=== PATIENT | female | born 1995 | race Caucasian/White ===

== ENCOUNTER 2017-07-01 02:25 | Emergency (ER) | payer SELFPAY ==
[2017-07-01] MEDS ORDERED: THIAMINE 200 MG/2 ML IV ONE (02:36)
[2017-07-01] MEDS ORDERED: Sodium Chloride 0.9% 1000 ML 1,000 ML IV STA ×2 (02:36→03:43)
[2017-07-01] MEDS ORDERED: Sodium Chloride 0.9% 1000 ML 1,000 ML ONE ×2 (02:40→03:44)
[2017-07-01] MEDS ORDERED: THIAMINE 200 MG/2 ML ONE (02:40)
--- NOTE | 2017-07-01 02:43 | ERPHSYRPT ---
- History of Present Illness Time Seen by Provider: 07/01/17 02:37 Source: patient Exam Limitations: no limitations Physician History: This is a 21-year-old white female brought by medics after patient was found outside laying in the yard patient is somewhat decreased level of consciousness however answering questions well patient was given Narcan by the medics as well as Zofran. Upon arrival patient is alert oriented 3 she denies falling she does state that she's been drinking alcohol on [place] mild she denies any illicit drug use at this time. Past medical history includes Graves' disease she states that she's had her thyroid removed she has a heart murmur and a history of nonepileptic seizures. Timing/Duration: today (just prior to arrival) Severity: moderate Modifying Factors: Improves With: other (alcohol use) Associated Symptoms: other (decreased level of consciousness earlier.), No nausea, No vomiting, No abdominal pain, No shortness of breath, No heartburn, No diaphoresis, No cough, No chills, No chest pain, No fever, No headaches, No loss of appetite, No malaise, No rash, No syncope, No seizure, No weakness Allergies/Adverse Reactions: No Known Drug Allergies Allergy (Unverified 07/01/17 02:37) Home Medications: No Reportable Medications [No Reported Medications] 07/01/17 [History] - Review of Systems Constitutional: No Fever, No Chills Eyes: No Symptoms, No Eye Pain, No Eye Redness, No Itchy, No Photophobia, No Tearing, No Vision Changes, No Double Vision, No Foreign Body Sensation Ears, Nose, & Throat: No Symptoms, No Ear Pain, No Ear Discharge, No Hearing Changes, No Tinnitus, No Nose Pain, No Nose Congestion, No Nose Discharge, No Sinus Drainage, No Epistaxis, No Mouth Pain, No Mouth Swelling, No Loose Teeth, No Throat Pain, No Throat Swelling, No Hoarse, No Painful Swallowing, No Snoring , No Stridor Respiratory: No Cough, No Dyspnea Cardiac: No Chest Pain, No Edema, No Syncope Abdominal/Gastrointestinal: No Nausea, No Vomiting, No Diarrhea, No Constipation , No Hematemesis, No Hematochezia, No Melena, No Dysphagia, No Appetite Changes Genitourinary Symptoms: No Dysuria Musculoskeletal: Other (low back pain) Skin: No Rash Neurological: Other (decreased level of consciousness earlier), No Dizziness, No Focal Weakness, No Sensory Changes Psychological: Other (patient states she's been drinking an unknown amount of alcohol) Endocrine: No Symptoms All Other Systems: Reviewed and Negative - Past Medical History Other Medical History: Graves diseate , non epileptic seizures, heart murmer thyroid iradiation - Past Surgical History Past Surgical History: No Significant Family History: no pertinent family hx - Nursing Vital Signs Nursing Vital Signs: Initial Vital Signs Temperature 98.5 F 07/01/17 02:47 Pulse Rate 89 07/01/17 02:47 Respiratory Rate 18 07/01/17 02:47 Blood Pressure 120/60 07/01/17 02:47 O2 Sat by Pulse Oximetry 98 07/01/17 02:47 Pain Scale Pain Intensity 4 - Physical Exam General Appearance: no apparent distress, alert, other (well-developed well- nourished white female, alert, oriented 3 talks in a soft voice) Eye Exam: PERRL/EOMI, eyes nml inspection Ears, Nose, Throat Exam: normal ENT inspection, TMs normal, pharynx normal, moist mucous membranes Neck Exam: normal inspection, non-tender, supple, full range of motion Respiratory Exam: normal breath sounds, lungs clear, No respiratory distress Cardiovascular Exam: regular rate/rhythm, normal heart sounds, normal peripheral pulses Gastrointestinal/Abdomen Exam: soft, normal bowel sounds, No tenderness, No mass Back Exam: normal inspection, normal range of motion, No CVA tenderness, No vertebral tenderness Extremity Exam: normal inspection, normal range of motion, pelvis stable Neurologic Exam: alert, oriented x 3, cooperative, 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 as tested, normal mood/affect, nml cerebellar function, nml station & gait, sensation nml, other (Patient alert, oriented 3, cranial nerves II through XII intact, speech normal, 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 equal and symmetrical 5/5 finger to nose within normal limits, sensation intact to all extremities), No motor deficits Skin Exam: normal color, warm, dry, No rash Lymphatic Exam: No adenopathy SpO2 Interpretation: normal (98%), borderline oxygenation Oxygen Delivery: Room Air - Course Nursing assessment & vital signs reviewed: Yes EKG Interpreted by Me: RATE (85 bpm), Sinus Rhythm, NORMAL AXIS, 1st degree AV Block, Other (EKG, sinus rhythm with first-degree AV 85 bpm normal axis no acute ST or T wave changes noted) Ordered Tests: Active Orders 24 hr Category Date Time Status Accucheck STAT Care 07/01/17 02:36 Active Industrial Machine Assembler STAT Care 07/01/17 02:37 Active EKG-ER Only STAT Care 07/01/17 02:36 Active IV Insertion STAT Care 07/01/17 02:36 Active Orthostatic Vital Signs STAT Care 07/01/17 03:41 Active ACETAMINOPHEN Stat Lab 07/01/17 02:55 Completed AMYLASE Stat Lab 07/01/17 02:55 Completed CBC W DIFF Stat Lab 07/01/17 02:55 Completed CMP Stat Lab 07/01/17 02:55 Completed ETHYL ALCOHOL Stat Lab 07/01/17 02:55 Completed HCG QUALITATIVE,SERUM Stat Lab 07/01/17 02:55 Completed LIPASE Stat Lab 07/01/17 02:55 Completed SALICYLATE Stat Lab 07/01/17 02:55 Completed UA W/RFX UR CULTURE Stat Lab 07/01/17 02:55 Completed Urine Triage Profile Stat Lab 07/01/17 02:55 Completed Medication Summary Generic Name Dose Route Start Last Admin Trade Name Freq PRN Reason Stop Dose Admin Sodium Chloride 1,000 mls @ 999 mls/hr 07/01/17 03:43 Sodium Chloride 0.9% 1000 Ml IV 07/01/17 04:43 .Q1H1M STA Discontinued Medications Generic Name Dose Route Start Last Admin Trade Name Freq PRN Reason Stop Dose Admin Sodium Chloride 1,000 mls @ 999 mls/hr 07/01/17 02:36 07/01/17 02:42 Sodium Chloride 0.9% 1000 Ml IV 07/01/17 03:36 999 mls/hr .Q1H1M STA Administration Sodium Chloride Confirm 07/01/17 02:40 Sodium Chloride 0.9% 1000 Ml Administered 07/01/17 02:41 Dose 1,000 mls @ ud .ROUTE .STK-MED ONE Thiamine HCl 100 mg 07/01/17 02:36 07/01/17 02:42 Thiamine 200 Mg/2 Ml IV 07/01/17 02:37 100 mg STAT ONE Administration Thiamine HCl Confirm 07/01/17 02:40 Thiamine 200 Mg/2 Ml Administered 07/01/17 02:41 Dose 200 mg .ROUTE .STK-MED ONE Lab/Rad Data: Laboratory Result Diagrams 07/01/17 02:55 07/01/17 02:55 Laboratory Results 07/01/17 07/01/17 07/01/17 Range/Units 02:55 02:55 02:55 WBC (4.0-10.5) K/mm3 RBC (4.1-5.4) M/mm3 Hgb (12.0-16.0) gm/dl Hct (35-47) % MCV (78-100) fl MCH (26-32) pg MCHC (32-36) g/dl RDW (11.5-14.0) % Plt Count (150-450) K/mm3 MPV (6-9.5) fl Gran % (36.0-66.0) % Lymphocytes % (24.0-44.0) % Monocytes % (0.0-12.0) % Eosinophils % (0.00-5.0) % Basophils % (0.0-0.4) % Basophils # (0-0.4) Sodium 143 (136-145) mEq/L Potassium 3.5 (3.5-5.1) mEq/L Chloride 108 H (98-107) mEq/L Carbon Dioxide 23.0 (21-32) mEq/L Anion Gap 15.0 (5-15) MEQ/L BUN 14 (9-20) mg/dL Creatinine 1.06 (0.55-1.30) mg/dl Estimated GFR > 60 ML/MIN Glucose 77 (70-110) MG/DL Calcium 8.5 (8.5-10.1) mg/dL Total Bilirubin 0.40 (0.2-1.0) mg/dL AST 34 (15-37) U/L ALT 26 (12-78) U/L Alkaline Phosphatase 35 L (46-116) U/L Serum Total Protein 7.0 (6.4-8.2) gm/dL Albumin 4.2 (3.4-5.0) g/dL Amylase 36 (25-115) U/L Lipase 157 (73-393) U/L Serum , Qual NEGATIVE (Negative) Ur Collection Type Urine Color (YELLOW) Urine Appearance (CLEAR) Urine pH (5-6) Ur Specific [place] (1.005-1.025) Urine Protein (Negative) Urine Ketones (NEGATIVE) Urine Blood (0-5) [place]/ul Urine Nitrite (NEGATIVE) Urine Bilirubin (NEGATIVE) Urine Urobilinogen (0-1) mg/dL Ur Leukocyte Esterase (NEGATIVE) Urine Glucose (NEGATIVE) mg/dL Salicylates < 2.8 L (2.8-20.0) mg/dl Urine Opiates Level (NEGATIVE) Ur Methadone (NEGATIVE) Acetaminophen < 2.0 L (10-30) ug/ml Urine Barbiturates (NEGATIVE) Ur Phencyclidine (PCP) (NEGATIVE) Urine Amphetamine (NEGATIVE) U Benzodiazepine Level (NEGATIVE) Urine Cocaine (NEGATIVE) Urine Marijuana (THC) (NEGATIVE) Ethyl Alcohol 0.055 H (0.00-0.01) % Specimen Received 07/01/17 07/01/17 07/01/17 Range/Units 02:55 02:55 02:55 WBC 6.1 (4.0-10.5) K/mm3 RBC 3.26 L (4.1-5.4) M/mm3 Hgb 10.1 L (12.0-16.0) gm/dl Hct 30.8 L (35-47) % MCV 94.5 (78-100) fl MCH 30.9 (26-32) pg MCHC 32.8 (32-36) g/dl RDW 13.6 (11.5-14.0) % Plt Count 202 (150-450) K/mm3 MPV 9.4 (6-9.5) fl Gran % 47.9 (36.0-66.0) % Lymphocytes % 37.1 (24.0-44.0) % Monocytes % 8.8 (0.0-12.0) % Eosinophils % 5.9 H (0.00-5.0) % Basophils % 0.3 (0.0-0.4) % Basophils # 0.02 (0-0.4) Sodium (136-145) mEq/L Potassium (3.5-5.1) mEq/L Chloride (98-107) mEq/L Carbon Dioxide (21-32) mEq/L Anion Gap (5-15) MEQ/L BUN (9-20) mg/dL Creatinine (0.55-1.30) mg/dl Estimated GFR ML/MIN Glucose (70-110) MG/DL Calcium (8.5-10.1) mg/dL Total Bilirubin (0.2-1.0) mg/dL AST (15-37) U/L ALT (12-78) U/L Alkaline Phosphatase (46-116) U/L Serum Total Protein (6.4-8.2) gm/dL Albumin (3.4-5.0) g/dL Amylase (25-115) U/L Lipase (73-393) U/L Serum , Qual (Negative) Ur Collection Type CLEAN CATCH Urine Color YELLOW (YELLOW) Urine Appearance CLEAR (CLEAR) Urine pH 5.0 (5-6) Ur Specific [place] 1.020 (1.005-1.025) Urine Protein NEGATIVE (Negative) Urine Ketones NEGATIVE (NEGATIVE) Urine Blood NEGATIVE (0-5) [place]/ul Urine Nitrite NEGATIVE (NEGATIVE) Urine Bilirubin NEGATIVE (NEGATIVE) Urine Urobilinogen NORMAL (0-1) mg/dL Ur Leukocyte Esterase NEGATIVE (NEGATIVE) Urine Glucose NEGATIVE (NEGATIVE) mg/dL Salicylates (2.8-20.0) mg/dl Urine Opiates Level NEG. (NEGATIVE) Ur Methadone NEG. (NEGATIVE) Acetaminophen (10-30) ug/ml Urine Barbiturates NEG. (NEGATIVE) Ur Phencyclidine (PCP) NEG. (NEGATIVE) Urine Amphetamine NEG. (NEGATIVE) U Benzodiazepine Level NEG. (NEGATIVE) Urine Cocaine NEG. (NEGATIVE) Urine Marijuana (THC) NEG. (NEGATIVE) Ethyl Alcohol (0.00-0.01) % Specimen Received 07/01/17 0255 - Progress Progress: improved Progress Note: 07/01/17 03:36 21-year-old white female brought by medics with complaint that the patient was decreased level of consciousness and laying out in the yard. Patient initially noted to be somewhat somnolent by medics she was given Narcan and Zofran. Patient's labs are essentially normal patient initially mildly somnolent but arouses easily was alert oriented 3. Patient now is alert and oriented after having received thiamine 100 mg normal saline 1000 mL IV. She is in no acute distress she has been able to ambulate to the bathroom. Patient with a blood alcohol level 0.055. Patient does have a history of nonepileptic seizures. patient does state that she was in an argument and went outside to smoke before patient with decreased level of consciousness. Will plan to discharge patient. Will have patient no further drinking she is to stay with family or friends. No driving. Take showers instead of baths Will obtain orthostatic vital signs before patient leaves. 07/01/17 03:45 Patient with mild orthostatic hypotension. Will give a second liter of normal saline prior to discharge. - Departure Time of Disposition: 03:39 Departure Disposition: Home Clinical Impression: Decreased level of consciousness, Alcohol use, history of nonepileptic seizures Condition: Fair Critical Care Time: No Referrals: RUSSEL GARIBAY [Primary Care Provider] - Additional Instructions: Return home. No more alcohol consumption today. Rest, plenty of fluids. No driving. No heights. No hazardous activity. Take showers instead of baths. Do not engage in any activity which may harm you or other people. Follow-up with your family doctor (list) Return for acute distress or for severe symptoms
[2017-07-01 03:08] LABS: BASOPHIL % 0.3 % (0.0-0.4); Eosinophil % 5.9 % (0.00-5.0); Granulocytes % 47.9 % (36.0-66.0); Lymphocytes % 37.1 % (24.0-44.0); Mean Cell Volume 94.5 fl (78-100); Mean Platelet Volume 9.4 fl (6-9.5); Monocytes % 8.8 % (0.0-12.0); Platelet Count 202 K/mm3 (150-450); Red Blood Count 3.26 M/mm3 (4.1-5.4); Red Cell Distribution Width 13.6 % (11.5-14.0); White Blood Count 6.1 K/mm3 (4.0-10.5)
[2017-07-01 03:11] LABS: ADD URINE CULTURE? NO (NO); Bilirubin NEGATIVE (NEGATIVE); Blood NEGATIVE Ery/ul (0-5); COMPLETE URINE MICROSCOPIC? NO; Collection Type CLEAN CATCH; Glucose NEGATIVE (NEGATIVE); Leukocyte Esterase NEGATIVE (NEGATIVE); Mean Corpuscular Hemoglobin 30.9 pg (26-32)
[2017-07-01 03:27] LABS: ETHYL ALCOHOL 0.055 % (0.00-0.01); LIPASE 157 U/L (73-393)
[2017-07-01 03:30] LABS: ACETAMINOPHEN < 2.0 ug/ml (10-30)
[2017-07-01 03:31] LABS: ALBUMIN 4.2 g/dL (3.4-5.0); ALKALINE PHOSPHATASE 35 U/L (46-116); BLOOD UREA NITROGEN 14 mg/dL (9-20); CHLORIDE 108 mEq/L (98-107); Glucose 77 MG/DL (70-110); Potassium 3.5 mEq/L (3.5-5.1); SGOT/AST 34 U/L (15-37); SGPT/ALT 26 U/L (12-78); SODIUM 143 mEq/L (136-145)
[2017-07-01 04:30] VITALS: BP 96/56; PULSE 82; O2SAT 99
== END 2017-07-01 04:40 | disposition home or self-care (01) ==
LOC: ED 02:25
DX: R40.4 Transient alteration of awareness (principal); Z72.89 Other problems related to lifestyle; Z87.898 Personal history of other specified conditions
CPT/HCPCS: 36000; 36415; 80053; 80307; 81002; 82150; 82962; 83690; 84703; 85025; 93005; 93041; 96360; 96361; 96374; 99284; G0481

== ENCOUNTER 2017-09-24 00:48 | Emergency (ER) | payer OTHER ==
[2017-09-24] MEDS ORDERED: TORAdol 30 mg Injection IV ONE (01:11)
--- NOTE | 2017-09-24 01:17 | ERPHSYRPT ---
- History of Present Illness Time Seen by Provider: 09/24/17 01:00 Historian: patient Exam Limitations: no limitations Patient Subjective Stated Complaint: Pt C/O chest discomfort with palpation and deep breathing x 3-4 days relieved with excedrin at home. Sts excedrin is now not working to relieve discomfort. Reports no cough. Had vomiting a few days ago with chills and sweats. Also reports intermittent hives on extremities. Triage Nursing Assessment: Pt alert, oriented, answers all questions appropriately. Skin pink, warm, dry. Resps non-labored. Pt ambulatory to tx room, steady gait noted. Physician History: Pt has been c/o lower, retrosternal chest pain for few days, not radiating, increasing upon deep inspiration. Pt is smoker, denies any medical problems, no productive cough, fever, severe shortness of breath, nausea, vomiting or other complaints. Timing/Duration: day(s) (4) Activities at Onset: none Quality: stabbing Location: substernal Chest Pain Radiation: no radiation Severity of Pain-Max: severe Severity of Pain-Current: mild Modifying Factors: Improves With: nothing Associated Symptoms: shortness of breath Prior Chest Pain/Cardiac Workup: no prior chest pain Nitro Today/Relief: no nitro taken today Aspirin Treatment Today: no aspirin today Allergies/Adverse Reactions: No Known Drug Allergies Allergy (Verified 09/24/17 00:58) Home Medications: No Reportable Medications [No Reported Medications] 07/01/17 [History] Hx Pneumococcal Vaccination/Date Given: No (unknown) - Review of Systems Constitutional: No Symptoms Respiratory: Cough, Dyspnea on Exertion (CONCEPCION) Cardiac: Chest Pain, No Edema Skin: Pruritis, Other (hives on both forearms) All Other Systems: Reviewed and Negative - Past Medical History Pertinent Past Medical History: Yes Neurological History: Seizures Cardiac History: Other Endocrine Medical History: Other Other Medical History: Graves diseate , non epileptic seizures, heart murmer thyroid iradiation - Past Surgical History Past Surgical History: No Cardiac: Other Other Surgical History: states heart murmur surgery, - Social History Smoking Status: Current every day smoker How long have you smoked: 11 Exposure to second hand smoke: No Drug Use: none Patient Lives Alone: No Significant Family History: no pertinent family hx - Female History Hx Last Menstrual Period: 09/07/17 Hx Now: No - Nursing Vital Signs Nursing Vital Signs: Initial Vital Signs Temperature 97.4 F 09/24/17 00:59 Pulse Rate 70 09/24/17 00:59 Respiratory Rate 16 09/24/17 00:59 Blood Pressure 110/69 09/24/17 00:59 O2 Sat by Pulse Oximetry 99 09/24/17 00:59 Pain Scale Pain Intensity 0 - Physical Exam General Appearance: no apparent distress Eye Exam: PERRL/EOMI Ears, Nose, Throat Exam: normal ENT inspection Neck Exam: normal inspection, non-tender, supple, No JVD Respiratory Exam: normal breath sounds, lungs clear, airway intact, No chest tenderness, No respiratory distress Cardiovascular Exam: regular rate/rhythm, normal heart sounds, normal peripheral pulses Gastrointestinal/Abdomen Exam: soft, normal bowel sounds, tenderness (mild, RUQ) , No distention, No mass, No rebound Back Exam: normal inspection, rash, other (hives), No CVA tenderness Extremity Exam: normal inspection, normal range of motion, madeline's sign ( negative), No contusions, No calf tenderness Neurologic Exam: alert, oriented x 3, cooperative, normal mood/affect Skin Exam: warm, dry, rash (hives on both cubital areas), jaundice (mild) Lymphatic Exam: No adenopathy SpO2: 99 Oxygen Delivery: Room Air - Course EKG Interpreted by Me: Sinus [place], NORMAL AXIS, NORMAL INTERVALS, Non-specific ST Changes - CT Exams Abdomen/Pelvis CT Interpretation: Other (Cholelithiasis, enlargement of CBD (1.4 cm), suspected calculus near the sphincter of Oddi) Ordered Tests: Active Orders 24 hr Category Date Time Status Machine Feller STAT Care 09/24/17 01:09 Active EKG-ER Only STAT Care 09/24/17 01:08 Active IV Insertion STAT Care 09/24/17 01:08 Active ABDOMEN AND PELVIS W CONTRAST [CT] Stat Exams 09/24/17 02:30 Taken CHEST 2 VIEWS (PA AND LAT) Stat Exams 09/24/17 01:08 Taken CHEST WITH CONTRAST [CT] Stat Exams 09/24/17 02:30 Taken CBC W DIFF Stat Lab 09/24/17 01:30 Completed CMP Stat Lab 09/24/17 01:30 Completed D-DIMER QUANTITATION Stat Lab 09/24/17 01:30 Completed HCG,QUALITATIVE URINE Stat Lab 09/24/17 04:30 Completed LIPASE Stat Lab 09/24/17 01:00 Completed MAGNESIUM Stat Lab 09/24/17 01:30 Completed NT PRO BNP Stat Lab 09/24/17 01:30 Completed TROPONIN Q3H Lab 09/24/17 01:30 Completed TROPONIN Q3H Lab 09/24/17 04:35 Completed TROPONIN Q3H Lab 09/24/17 07:15 Ordered TROPONIN Q3H Lab 09/24/17 10:15 Ordered TROPONIN Q3H Lab 09/24/17 13:15 Ordered Urine Triage Profile Stat Lab 09/24/17 04:30 Completed Medication Summary Generic Name Dose Route Start Last Admin Trade Name Freq PRN Reason Stop Dose Admin Sodium Chloride 1,000 mls @ 999 mls/hr 09/24/17 04:32 09/24/17 04:41 Sodium Chloride 0.9% 1000 Ml IV 09/24/17 05:32 999 mls/hr .Q1H1M STA Administration Discontinued Medications Generic Name Dose Route Start Last Admin Trade Name Freq PRN Reason Stop Dose Admin Diphenhydramine HCl 25 mg 09/24/17 01:38 09/24/17 01:56 Benadryl 50 Mg/Ml IV 09/24/17 01:39 25 mg STAT ONE Administration Diphenhydramine HCl Confirm 09/24/17 01:55 Benadryl 50 Mg/Ml Administered 09/24/17 01:56 Dose 50 mg .ROUTE .STK-MED ONE Sodium Chloride Confirm 09/24/17 04:39 Sodium Chloride 0.9% 1000 Ml Administered 09/24/17 04:40 Dose 1,000 mls @ ud .ROUTE .STK-MED ONE Ketorolac Tromethamine 30 mg 09/24/17 01:11 09/24/17 01:51 Toradol 30 Mg Injection IV 09/24/17 01:12 30 mg STAT ONE Administration Ketorolac Tromethamine Confirm 09/24/17 01:35 Toradol 30 Mg Injection Administered 09/24/17 01:36 Dose 30 mg .ROUTE .STK-MED ONE Lab/Rad Data: Laboratory Result Diagrams 09/24/17 01:30 09/24/17 01:30 Laboratory Results 09/24/17 09/24/17 09/24/17 Range/Units 04:35 04:30 04:30 WBC (4.0-10.5) K/mm3 RBC (4.1-5.4) M/mm3 Hgb (12.0-16.0) gm/dl Hct (35-47) % MCV (78-100) fl MCH (26-32) pg MCHC (32-36) g/dl RDW (11.5-14.0) % Plt Count (150-450) K/mm3 MPV (6-9.5) fl Gran % (36.0-66.0) % Lymphocytes % (24.0-44.0) % Monocytes % (0.0-12.0) % Eosinophils % (0.00-5.0) % Basophils % (0.0-0.4) % Basophils # (0-0.4) D-Dimer (0-500) ng/mL Sodium (136-145) mEq/L Potassium (3.5-5.1) mEq/L Chloride (98-107) mEq/L Carbon Dioxide (21-32) mEq/L Anion Gap (5-15) MEQ/L BUN (9-20) mg/dL Creatinine (0.55-1.30) mg/dl Estimated GFR ML/MIN Glucose (70-110) MG/DL Calcium (8.5-10.1) mg/dL Magnesium (1.8-2.4) mg/dL Total Bilirubin (0.2-1.0) mg/dL AST (15-37) U/L ALT (12-78) U/L Alkaline Phosphatase (46-116) U/L Troponin I < 0.017 (0.000-0.056) ng/ml NT-Pro-B Natriuret Pep (0-125) pg/ml Serum Total Protein (6.4-8.2) gm/dL Albumin (3.4-5.0) g/dL Lipase (73-393) U/L Urine HCG, Qual NEGATIVE (Negative) Urine Opiates Level NEG. (NEGATIVE) Ur Methadone NEG. (NEGATIVE) Urine Barbiturates NEG. (NEGATIVE) Ur Phencyclidine (PCP) NEG. (NEGATIVE) Urine Amphetamine NEG. (NEGATIVE) U Benzodiazepine Level NEG. (NEGATIVE) Urine Cocaine NEG. (NEGATIVE) Urine Marijuana (THC) POS. (NEGATIVE) 09/24/17 09/24/17 09/24/17 Range/Units 01:30 01:30 01:30 WBC (4.0-10.5) K/mm3 RBC (4.1-5.4) M/mm3 Hgb (12.0-16.0) gm/dl Hct (35-47) % MCV (78-100) fl MCH (26-32) pg MCHC (32-36) g/dl RDW (11.5-14.0) % Plt Count (150-450) K/mm3 MPV (6-9.5) fl Gran % (36.0-66.0) % Lymphocytes % (24.0-44.0) % Monocytes % (0.0-12.0) % Eosinophils % (0.00-5.0) % Basophils % (0.0-0.4) % Basophils # (0-0.4) D-Dimer 1175.86 H* (0-500) ng/mL Sodium 136 (136-145) mEq/L Potassium 3.8 (3.5-5.1) mEq/L Chloride 102 (98-107) mEq/L Carbon Dioxide 26.6 (21-32) mEq/L Anion Gap 11.3 (5-15) MEQ/L BUN 15 (9-20) mg/dL Creatinine 1.38 H (0.55-1.30) mg/dl Estimated GFR 52 ML/MIN Glucose 88 (70-110) MG/DL Calcium 9.3 (8.5-10.1) mg/dL Magnesium 2.0 (1.8-2.4) mg/dL Total Bilirubin 2.40 H (0.2-1.0) mg/dL AST 686 H (15-37) U/L ALT 895 H (12-78) U/L Alkaline Phosphatase 230 H (46-116) U/L Troponin I < 0.017 (0.000-0.056) ng/ml NT-Pro-B Natriuret Pep 81 (0-125) pg/ml Serum Total Protein 7.6 (6.4-8.2) gm/dL Albumin 4.2 (3.4-5.0) g/dL Lipase (73-393) U/L Urine HCG, Qual (Negative) Urine Opiates Level (NEGATIVE) Ur Methadone (NEGATIVE) Urine Barbiturates (NEGATIVE) Ur Phencyclidine (PCP) (NEGATIVE) Urine Amphetamine (NEGATIVE) U Benzodiazepine Level (NEGATIVE) Urine Cocaine (NEGATIVE) Urine Marijuana (THC) (NEGATIVE) 09/24/17 09/24/17 Range/Units 01:30 01:00 WBC 5.2 (4.0-10.5) K/mm3 RBC 3.67 L (4.1-5.4) M/mm3 Hgb 11.3 L (12.0-16.0) gm/dl Hct 34.8 L (35-47) % MCV 94.8 (78-100) fl MCH 30.7 (26-32) pg MCHC 32.5 (32-36) g/dl RDW 13.7 (11.5-14.0) % Plt Count 189 (150-450) K/mm3 MPV 9.8 H (6-9.5) fl Gran % 44.5 (36.0-66.0) % Lymphocytes % 40.7 (24.0-44.0) % Monocytes % 7.5 (0.0-12.0) % Eosinophils % 6.7 H (0.00-5.0) % Basophils % 0.6 (0.0-0.4) % Basophils # 0.03 (0-0.4) D-Dimer (0-500) ng/mL Sodium (136-145) mEq/L Potassium (3.5-5.1) mEq/L Chloride (98-107) mEq/L Carbon Dioxide (21-32) mEq/L Anion Gap (5-15) MEQ/L BUN (9-20) mg/dL Creatinine (0.55-1.30) mg/dl Estimated GFR ML/MIN Glucose (70-110) MG/DL Calcium (8.5-10.1) mg/dL Magnesium (1.8-2.4) mg/dL Total Bilirubin (0.2-1.0) mg/dL AST (15-37) U/L ALT (12-78) U/L Alkaline Phosphatase (46-116) U/L Troponin I (0.000-0.056) ng/ml NT-Pro-B Natriuret Pep (0-125) pg/ml Serum Total Protein (6.4-8.2) gm/dL Albumin (3.4-5.0) g/dL Lipase 278 (73-393) U/L Urine HCG, Qual (Negative) Urine Opiates Level (NEGATIVE) Ur Methadone (NEGATIVE) Urine Barbiturates (NEGATIVE) Ur Phencyclidine (PCP) (NEGATIVE) Urine Amphetamine (NEGATIVE) U Benzodiazepine Level (NEGATIVE) Urine Cocaine (NEGATIVE) Urine Marijuana (THC) (NEGATIVE) - Progress Progress: improved Air Movement: good Progress Note: 09/24/17 04:17 Pt has been afebrile, improved after Toradol and Zofran, denies severe pain. I discussed the results with her and the need to be transferred to another Hospital for MRCP, and possible Endoscopic procedure. 09/24/17 05:[address] Trevino at [facility], discussed our findings and patient's current condition, he agreed to transfer her to their ER for further care, informed patient, and she agreed to be transferred, she understood all risks and benefits involved. - Departure Time of Disposition: 05:05 Departure Disposition: Transfer Clinical Impression: Jaundice, Biliary calculi, common bile duct Condition: Stable Critical Care Time: No Referrals: DOCTOR,NO FAMILY [Primary Care Provider] -
[2017-09-24 01:34] LABS: BASOPHIL % 0.6 % (0.0-0.4); Eosinophil % 6.7 % (0.00-5.0); Granulocytes % 44.5 % (36.0-66.0); Lymphocytes % 40.7 % (24.0-44.0); Mean Cell Volume 94.8 fl (78-100); Mean Platelet Volume 9.8 fl (6-9.5); Monocytes % 7.5 % (0.0-12.0); Platelet Count 189 K/mm3 (150-450); Red Blood Count 3.67 M/mm3 (4.1-5.4); Red Cell Distribution Width 13.7 % (11.5-14.0); White Blood Count 5.2 K/mm3 (4.0-10.5)
[2017-09-24] MEDS ORDERED: TORAdol 30 mg Injection ONE (01:35)
[2017-09-24] MEDS ORDERED: BENADRYL 50 MG/ML IV ONE (01:38)
[2017-09-24 01:54] LABS: Mean Corpuscular Hemoglobin 30.7 pg (26-32)
[2017-09-24] MEDS ORDERED: BENADRYL 50 MG/ML ONE (01:55)
[2017-09-24 02:06] LABS: ALBUMIN 4.2 g/dL (3.4-5.0); ANION GAP 11.3 MEQ/L (5-15); BILIRUBIN,TOTAL 2.4 mg/dL (0.2-1.0); Carbon Dioxide 26.6 mEq/L (21-32); Potassium 3.8 mEq/L (3.5-5.1); Total Protein 7.6 gm/dL (6.4-8.2)
[2017-09-24] MEDS ORDERED: Sodium Chloride 0.9% 1000 ML 1,000 ML IV STA (04:32)
[2017-09-24] MEDS ORDERED: Sodium Chloride 0.9% 1000 ML 1,000 ML ONE (04:39)
[2017-09-24 05:06] VITALS: O2SAT 99
[2017-09-24 06:01] VITALS: BP 99/54; PULSE 69
--- NOTE | 2017-09-24 16:29 | XRAY ---
Indication: Chest pain. Elevated d-dimer. Multiple contiguous axial images obtained through the chest using 80 cc Isovue 370 contrast and PE protocol. Comparison: None There is satisfactory opacification of the pulmonary arteries to include lobar and segmental branches. No filling defect or pulmonary embolus. Heart is not enlarged. Aorta is normal in course and caliber. No pathologic mediastinal/hilar lymphadenopathy. Small hiatal hernia. Examination of the lung parenchyma demonstrates mild bilateral dependent atelectasis and tiny bilateral effusions. Right middle lobe subsegmental atelectasis/scarring. Bony thorax intact with partially united old right clavicle shaft fracture. CT abdomen reported separately. Impression: 1. Negative pulmonary embolus. 2. Tiny bilateral pleural effusions and bilateral dependent atelectasis. 3. Small hiatal hernia. Comment: Preliminary interpretation was made by C. No discrepancy. CTDI 12.07
--- NOTE | 2017-09-24 16:33 | XRAY ---
Indication: Right abdominal pain. Elevated liver enzymes. Multiple contiguous axial images obtained through the abdomen and pelvis using 80 cc Isovue 370 contrast only. Comparison: None CT chest reported separately. Noncontrasted stomach and bowel loops appear nonobstructed. There is small cul-de-sac fluid presumed from ruptured/leaking cyst. Gallbladder is moderately distended with numerous tiny intraluminal gallstones. Common bile duct distended up to 14 mm. Remaining liver, pancreas, spleen, adrenal glands, kidneys, ureters, bladder, uterus, and aorta appear unremarkable. No pathologic retroperitoneal lymphadenopathy. Bony thorax intact with partially united old right clavicle shaft fracture osseous structures intact CT abdomen reported separately. Impression: 1. Distended gallbladder with numerous gallstones and common bile duct prominence. Gallbladder sonogram may yield further information. 2. Small cul-de-sac fluid presumed from ruptured/leaking cyst. Comment: Preliminary interpretation was made by C. No discrepancy. CTDI 12.07
--- NOTE | 2017-09-24 16:36 | XRAY ---
Indication: Chest pain. Comparison: October 11, 2009. PA/lateral chest again demonstrates normal heart, lungs, and bony thorax with interval atrial septal defect surgery.
== END 2017-09-24 06:15 | disposition short-term general hospital (02) ==
LOC: ED 00:48
DX: R17 Unspecified jaundice (principal); K80.80 Other cholelithiasis without obstruction; K80.50 Calculus of bile duct without cholangitis or cholecystitis without obstruction; R07.89 Other chest pain; E05.00 Thyrotoxicosis with diffuse goiter without thyrotoxic crisis or storm; R05 Cough; R06.00 Dyspnea, unspecified
CPT/HCPCS: 36000; 36415; 71020; 71260; 74177; 80053; 80307; 83690; 83735; 83880; 84484; 84703; 85025; 85379; 93005; 93041; 96360; 99285; J1200; J1885

== ENCOUNTER 2018-04-29 02:29 | Emergency (ER) | payer SELFPAY | END 2018-04-29 03:10 | disposition left against medical advice (07) | LOC: ED 02:29 | DX: Z53.21 Procedure and treatment not carried out due to patient leaving prior to being seen by health care provider (principal) | CPT/HCPCS: 99281 ==

== ENCOUNTER 2018-12-20 19:24 | Emergency (ER) | payer MEDICAID ==
[2018-12-20 19:43] VITALS: BP 104/64; PULSE 82; O2SAT 100
[2018-12-20] MEDS ORDERED: Sodium Chloride 0.9% 1000 ML 1,000 ML IV SCH (20:00)
--- NOTE | 2018-12-20 20:03 | ERPHSYRPT ---
- History of Present Illness Time Seen by Provider: 12/20/18 19:51 Source: patient Exam Limitations: no limitations Patient Subjective Stated Complaint: pt is alert and oriented. pt is ambulatory with a steady gait. pt comes in with c/o chest pain, w n,v,d. pt states she's having substernal pain and left sided sharp chest pains that are mid axillary. pt states she has had green bile vomit. pt tender on left side upon palpation. bowel sounds present x4. Triage Nursing Assessment: see above Physician History: 23-year-old white female with history of nonepileptic seizures, gallbladder disease, Graves' disease, heart murmur, thyroid problems. Patient arrives with complaint of sharp pains left lateral chest also pain is in the substernal and epigastric region symptoms going on since 10:00 this morning denies shortness of breath positive nausea positive vomiting states she woke up with the above complaint. Past medical history includes nonepileptic seizures, gallbladder disease, Graves ' disease, heart murmur, thyroid problems Past surgical history includes tonsillectomy adenoidectomy, cholecystectomy, surgery for heart murmur, patient states she has had stents however old chart shows surgery for heart murmur, Social history occasional alcohol Timing/Duration: today Severity: moderate Modifying Factors: Improves With: nothing Associated Symptoms: nausea, vomiting, abdominal pain (epigastric pain), chest pain (sharp lateral and substernal chest pain), No shortness of breath, No heartburn, No diaphoresis, No cough, No chills, No fever, No headaches, No loss of appetite, No malaise, No rash, No syncope, No seizure, No weakness Allergies/Adverse Reactions: No Known Drug Allergies Allergy (Verified 09/24/17 00:58) Home Medications: No Reportable Medications [No Reported Medications] 07/01/17 [History] Hx Pneumococcal Vaccination/Date Given: No (unknown) Immunizations Up to Date: Yes - Review of Systems Constitutional: No Fever, No Chills Eyes: No Symptoms Ears, Nose, & Throat: No Symptoms Respiratory: No Cough, No Dyspnea Cardiac: Chest Pain (Sharp chest pain substernal and lateral) Abdominal/Gastrointestinal: Abdominal Pain (Epigastric pain), Nausea, Vomiting, No Diarrhea, No Constipation, No Hematemesis, No Hematochezia, No Melena, No Dysphagia, No Appetite Changes Genitourinary Symptoms: No Dysuria Musculoskeletal: No Back Pain, No Neck Pain Skin: No Rash Neurological: No Dizziness, No Focal Weakness, No Sensory Changes Psychological: No Symptoms Endocrine: No Symptoms All Other Systems: Reviewed and Negative - Past Medical History Pertinent Past Medical History: Yes Neurological History: Seizures ENT History: No Pertinent History Cardiac History: Other Respiratory History: No Pertinent History Endocrine Medical History: Other Musculoskeletal History: No Pertinent History GI Medical History: Gallbladder Disease History: No Pertinent History Psycho-Social History: No Pertinent History Female Reproductive Disorders: No Pertinent History Other Medical History: Graves diseate , non epileptic seizures, heart murmer thyroid iradiation - Past Surgical History Past Surgical History: Yes Neuro Surgical History: No Pertinent History Cardiac: Other Respiratory: No Pertinent History Gastrointestinal: Cholecystectomy Genitourinary: No Pertinent History Musculoskeletal: No Pertinent History Female Surgical History: No Pertinent History Other Surgical History: states heart murmur surgery, gallstrone removal and then melisa - Social History Smoking Status: Current every day smoker How long have you smoked: 13 years Exposure to second hand smoke: No Drug Use: none Patient Lives Alone: No Significant Family History: no pertinent family hx - Female History Hx Last Menstrual Period: 12/19/18 Hx Now: No (unknown) - Nursing Vital Signs Nursing Vital Signs: Initial Vital Signs Temperature 98.3 F 12/20/18 19:34 Pulse Rate 84 12/20/18 19:34 Respiratory Rate 18 12/20/18 19:34 Blood Pressure 104/64 12/20/18 19:34 O2 Sat by Pulse Oximetry 100 12/20/18 19:34 Pain Scale Pain Intensity 6 - Physical Exam General Appearance: no apparent distress, alert Eye Exam: PERRL/EOMI, eyes nml inspection Ears, Nose, Throat Exam: normal ENT inspection, TMs normal, pharynx normal, moist mucous membranes Neck Exam: normal inspection, non-tender, supple, full range of motion Respiratory Exam: normal breath sounds, lungs clear, No respiratory distress Cardiovascular Exam: regular rate/rhythm, normal heart sounds, normal peripheral pulses, capillary refill <2 sec Gastrointestinal/Abdomen Exam: soft, normal bowel sounds, No tenderness, No mass Back Exam: normal inspection, normal range of motion, No CVA tenderness, No vertebral tenderness Extremity Exam: normal inspection, normal range of motion, pelvis stable Neurologic Exam: alert, oriented x 3, cooperative, 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-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 nml as tested, normal mood/affect, nml cerebellar function, nml station & gait, sensation nml, No motor deficits Skin Exam: normal color (this is percent), warm, dry, No rash SpO2 Interpretation: normal (100%) SpO2: 100 - Course Nursing assessment & vital signs reviewed: Yes EKG Interpreted by Me: RATE (94 bpm), NORMAL AXIS, Other (EKG sinus arrhythmia, 94 bpm, moderate amount of artifact, first-degree AV block, no acute ST or T wave changes, compared to September 24, 2017) - Radiology Exams Chest X-ray Interpretation: Interpreted by me (no acute disease process noted) Ordered Tests: Active Orders 24 hr Category Date Time Status Duco Polisher STAT Care 12/20/18 19:56 Active EKG-ER Only STAT Care 12/20/18 19:55 Active IV Insertion STAT Care 12/20/18 19:55 Active Pulse Oximetry (ED) STAT Care 12/20/18 19:55 Active CHEST 1 VIEW (PORTABLE) Stat Exams 12/20/18 19:56 Taken AMYLASE Stat Lab 12/20/18 20:30 Completed CBC W DIFF Stat Lab 12/20/18 20:30 Completed CMP Stat Lab 12/20/18 20:30 Completed D-DIMER QUANTITATION Stat Lab 12/20/18 20:30 Completed HCG QUALITATIVE,SERUM Stat Lab 12/20/18 20:30 Completed LIPASE Stat Lab 12/20/18 20:30 Completed PROTIME WITH INR Stat Lab 12/20/18 20:30 Completed PTT Stat Lab 12/20/18 20:30 Completed TROPONIN Q3H Lab 12/20/18 20:30 Completed TROPONIN Q3H Lab 12/20/18 23:00 Ordered TROPONIN Q3H Lab 12/21/18 02:00 Ordered TROPONIN Q3H Lab 12/21/18 05:00 Ordered TROPONIN Q3H Lab 12/21/18 08:00 Ordered UA W/RFX UR CULTURE Stat Lab 12/20/18 22:52 Ordered Urine Triage Profile Stat Lab 12/20/18 22:52 Ordered Medication Summary Generic Name Dose Route Start Last Admin Trade Name Freq PRN Reason Stop Dose Admin Sodium Chloride 1,000 mls @ 100 mls/hr 12/20/18 20:00 12/20/18 20:49 Sodium Chloride 0.9% 1000 Ml IV 01/19/19 19:59 100 mls/hr .Q10H SISI Administration Discontinued Medications Generic Name Dose Route Start Last Admin Trade Name Stephan PRN Reason Stop Dose Admin Aspirin 324 mg 12/20/18 21:13 12/20/18 21:28 Baby Aspirin 81 Mg Chew PO 12/20/18 21:14 324 mg STAT ONE Administration Aspirin Confirm 12/20/18 21:27 Baby Aspirin 81 Mg Chew Administered 12/20/18 21:28 Dose 324 mg .ROUTE .STK-MED ONE Lab/Rad Data: Laboratory Result Diagrams 12/20/18 20:30 12/20/18 20:30 Laboratory Results 12/20/18 12/20/18 12/20/18 Range/Units 20:30 20:30 20:30 WBC (4.0-10.5) K/mm3 RBC (4.1-5.4) M/mm3 Hgb (12.0-16.0) gm/dl Hct (35-47) % MCV (78-100) fl MCH (26-32) pg MCHC (32-36) g/dl RDW (11.5-14.0) % Plt Count (150-450) K/mm3 MPV (6-9.5) fl Gran % (36.0-66.0) % Eos # (Auto) (0-0.5) Absolute Lymphs (auto) (1.0-4.6) Absolute Monos (auto) (0.0-1.3) Lymphocytes % (24.0-44.0) % Monocytes % (0.0-12.0) % Eosinophils % (0.00-5.0) % Basophils % (0.0-0.4) % Absolute Granulocytes (1.4-6.9) Basophils # (0-0.4) PT 12.5 H (9.95-12.35) SECONDS INR 1.07 (0.8-3.0) APTT 31.4 (25.3-37.0) SECONDS D-Dimer 302 (215-500) ng/mL Sodium (137-145) mmol/L Potassium (3.5-5.1) mmol/L Chloride (98-107) mmol/L Carbon Dioxide (22-30) mmol/L Anion Gap (5-15) MEQ/L BUN (7-17) mg/dL Creatinine (0.52-1.04) mg/dL Estimated GFR ML/MIN Glucose (74-106) mg/dL Calcium (8.4-10.2) mg/dL Total Bilirubin (0.2-1.3) mg/dL AST (14-36) U/L ALT (0-35) U/L Alkaline Phosphatase (38-126) U/L Troponin I < 0.012 (0.000-0.034) ng/mL Serum Total Protein (6.3-8.2) g/dL Albumin (3.5-5.0) g/dL Amylase (30-110) U/L Lipase (23-300) U/L Serum , Qual NEGATIVE (Negative) 12/20/18 12/20/18 Range/Units 20:30 20:30 WBC 8.1 (4.0-10.5) K/mm3 RBC 3.97 L (4.1-5.4) M/mm3 Hgb 12.3 (12.0-16.0) gm/dl Hct 37.9 (35-47) % MCV 95.5 (78-100) fl MCH 30.9 (26-32) pg MCHC 32.5 (32-36) g/dl RDW 14.3 H (11.5-14.0) % Plt Count 245 (150-450) K/mm3 MPV 9.3 (6-9.5) fl Gran % 85.4 H (36.0-66.0) % Eos # (Auto) 0.27 (0-0.5) Absolute Lymphs (auto) 0.67 L (1.0-4.6) Absolute Monos (auto) 0.23 (0.0-1.3) Lymphocytes % 8.3 L (24.0-44.0) % Monocytes % 2.9 (0.0-12.0) % Eosinophils % 3.3 (0.00-5.0) % Basophils % 0.1 (0.0-0.4) % Absolute Granulocytes 6.89 (1.4-6.9) Basophils # 0.01 (0-0.4) PT (9.95-12.35) SECONDS INR (0.8-3.0) APTT (25.3-37.0) SECONDS D-Dimer (215-500) ng/mL Sodium 141 (137-145) mmol/L Potassium 4.2 (3.5-5.1) mmol/L Chloride 104 (98-107) mmol/L Carbon Dioxide 26 (22-30) mmol/L Anion Gap 14.5 (5-15) MEQ/L BUN 19 H (7-17) mg/dL Creatinine 1.33 H (0.52-1.04) mg/dL Estimated GFR 53.5 ML/MIN Glucose 84 (74-106) mg/dL Calcium 9.4 (8.4-10.2) mg/dL Total Bilirubin 1.00 (0.2-1.3) mg/dL AST 82 H (14-36) U/L ALT 48 H (0-35) U/L Alkaline Phosphatase 60 (38-126) U/L Troponin I (0.000-0.034) ng/mL Serum Total Protein 9.7 H (6.3-8.2) g/dL Albumin 5.6 H (3.5-5.0) g/dL Amylase 77 (30-110) U/L Lipase 127 (23-300) U/L Serum , Qual (Negative) - Progress Progress: improved Progress Note: 12/20/18 21:37 23-year-old white female arrives with complaint of chest pain and epigastric pain symptoms since this morning pain is described as sharp she states she's been having some vomiting. Patient's EKG normal, chest x-ray normal CBC CMP amylase lipase essentially normal with a mild elevation of liver enzymes. Troponin normal. Will plan on repeating troponin 3 hours after last draw patient has been given aspirin 324 mg orally. 12/20/18 22:55 The patient has decided she does not want to stay for a second troponin I have offered her this I've told her we do this to rule out cardiac etiology of her problems she still wishes to go home Will discharge patient. - Departure Time of Disposition: 22:56 Departure Disposition: Home Clinical Impression: Non-cardiac chest pain, Epigastric pain Condition: Fair Critical Care Time: No Referrals: DOCTOR,NO FAMILY [Primary Care Provider] - Additional Instructions: Return home. Plenty of fluids clear fluids only 24-48 hours if abdominal pain. Tylenol every 4 hours as needed for pain. Follow-up with your family doctor. Return for acute distress severe symptoms or for any problems.
[2018-12-20 20:41] LABS: BASOPHIL % 0.1 % (0.0-0.4); Basophil (Absolute #) 0.01 (0-0.4); Eosinophil % 3.3 % (0.00-5.0); Eosinophil (Absolute #) 0.27 (0-0.5); Granulocyte Absolute (ANC) 6.89 (1.4-6.9); Granulocytes % 85.4 % (36.0-66.0); Hematocrit 37.9 % (35-47); Hemoglobin 12.3 gm/dl (12.0-16.0); Lymphocyte (Absolute #) 0.67 (1.0-4.6); Lymphocytes % 8.3 % (24.0-44.0); Mean Cell Volume 95.5 fl (78-100); Mean Corpuscular Hgb Concent. 32.5 g/dl (32-36); Mean Platelet Volume 9.3 fl (6-9.5); Monocyte (Absolute #) 0.23 (0.0-1.3); Monocytes % 2.9 % (0.0-12.0); Platelet Count 245 K/mm3 (150-450); Red Blood Count 3.97 M/mm3 (4.1-5.4); Red Cell Distribution Width 14.3 % (11.5-14.0); White Blood Count 8.1 K/mm3 (4.0-10.5)
[2018-12-20 20:43] LABS: Mean Corpuscular Hemoglobin 30.9 pg (26-32)
[2018-12-20 20:48] LABS: INR 1.07 (0.8-3.0); PROTIME 12.5 SECONDS (9.95-12.35)
[2018-12-20] MEDS ORDERED: Sodium Chloride 0.9% 1000 ML 1,000 ML ONE (20:48)
[2018-12-20 20:51] LABS: PTT 31.4 SECONDS (25.3-37.0)
[2018-12-20 20:54] LABS: ALBUMIN 5.6 g/dL (3.5-5.0); ANION GAP 14.5 MEQ/L (5-15); Calcium 9.4 mg/dL (8.4-10.2); Creatinine 1 1.33 mg/dL (0.52-1.04); Potassium 4.2 mmol/L (3.5-5.1); Total Protein 9.7 g/dL (6.3-8.2)
[2018-12-20] MEDS ORDERED: BABY ASPIRIN 81 MG CHEW PO ONE (21:13)
[2018-12-20] MEDS ORDERED: BABY ASPIRIN 81 MG CHEW ONE (21:27)
[2018-12-20 23:10] LABS: Appearance CLEAR (CLEAR); Bilirubin NEGATIVE (NEGATIVE); Blood NEGATIVE Ery/ul (0-5); Glucose NEGATIVE (NEGATIVE); Ketones TRACE (NEGATIVE); Leukocyte Esterase NEGATIVE (NEGATIVE); Mucus SLIGHT /HPF (NEGATIVE); Nitrite NEGATIVE (NEGATIVE); Protein,Urine Dip NEGATIVE (Negative); RBC 0-2 /HPF (0-2); Specific Gravity 1.024 (1.005-1.025); Urobilinogen NEGATIVE mg/dL (0-1)
[2018-12-20 23:22] LABS: Amphetamine,Urine NEGATIVE (NEGATIVE); Barbiturate,Urine NEGATIVE (NEGATIVE); Benzodiazepine,Urine NEGATIVE (NEGATIVE); Cocaine,Urine NEGATIVE (NEGATIVE); Methadone,Urine NEGATIVE (NEGATIVE); Opiate,Urine NEGATIVE (NEGATIVE); PCP,Urine NEGATIVE (NEGATIVE); THC,Urine POSITIVE (NEGATIVE)
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
== END 2018-12-20 23:11 | disposition home or self-care (01) ==
LOC: ED 19:24
DX: R07.89 Other chest pain (principal); R10.13 Epigastric pain
CPT/HCPCS: 36000; 36415; 71045; 80053; 80307; 81001; 81025; 82150; 83690; 84484; 85025; 85379; 85610; 85730; 93005; 96360; 96361; 99284; A9270-GY

== ENCOUNTER 2019-11-01 16:02 | Emergency (ER) | payer OTHER, MEDICAID ==
[2019-11-01] MEDS ORDERED: SUBLIMAZE 100 MCG/2 ML ONE ×2 (16:04→18:27)
[2019-11-01] MEDS ORDERED: Zofran 4 MG/2 ML VIAL ONE (16:04)
[2019-11-01] MEDS ORDERED: Sodium Chloride 0.9% 1000 ML 1,000 ML IV STA (16:11)
[2019-11-01] MEDS ORDERED: SUBLIMAZE 100 MCG/2 ML IV ONE (16:11)
[2019-11-01] MEDS ORDERED: Zofran 4 MG/2 ML VIAL IV ONE (16:11)
[2019-11-01] MEDS ORDERED: Sodium Chloride 0.9% 1000 ML 1,000 ML ONE (16:14)
[2019-11-01 16:21] VITALS: BP 104/80; PULSE 100; O2SAT 100
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
[2019-11-01 16:44] LABS: Absolute Neutrophil Ct (ANC) 3.38 (1.4-6.9); BASOPHIL % 0.6 % (0.0-0.4); Basophil (Absolute #) 0.04 (0-0.4); Eosinophil % 7.7 % (0.00-5.0); Hematocrit 33.3 % (35-47); Hemoglobin 10.8 gm/dl (12.0-16.0); Lymphocyte (Absolute #) 2.16 (1.0-4.6); Lymphocytes % 33.2 % (24.0-44.0); Mean Cell Volume 96.8 fl (78-100); Mean Corpuscular Hemoglobin 31.4 pg (26-32); Mean Corpuscular Hgb Concent. 32.4 g/dl (32-36); Mean Platelet Volume 9.8 fl (7.5-11.0); Monocyte (Absolute #) 0.43 (0.0-1.3); Monocytes % 6.6 % (0.0-12.0); Neutrophil % 51.9 % (36.0-66.0); Platelet Count 221 K/mm3 (150-450); Red Blood Count 3.44 M/mm3 (4.1-5.4); Red Cell Distribution Width 14.5 % (11.5-14.0); White Blood Count 6.5 K/mm3 (4.0-10.5)
[2019-11-01 16:57] LABS: ALBUMIN 4.8 g/dL (3.5-5.0); ALKALINE PHOSPHATASE 41 U/L (38-126); ANION GAP 13.6 MEQ/L (5-15); BLOOD UREA NITROGEN 15 mg/dL (7-17); CHLORIDE 104 mmol/L (98-107); Calcium 9.4 mg/dL (8.4-10.2); Carbon Dioxide 25 mmol/L (22-30); Creatinine 1 1.14 mg/dL (0.52-1.04); Glucose 101 mg/dL (74-106); LIPASE 152 U/L (23-300); Potassium 3.8 mmol/L (3.5-5.1); SGOT/AST 78 U/L (14-36); SGPT/ALT 46 U/L (0-35); SODIUM 138 mmol/L (137-145); Total Protein 8.2 g/dL (6.3-8.2)
[2019-11-01] MEDS ORDERED: MORPHINE SULFATE 2 MG INJ ONE (19:42)
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
== END 2019-11-01 19:55 | disposition home or self-care (01) ==
LOC: ED 16:02
DX: S30.0XXA Contusion of lower back and pelvis, initial encounter (principal); S20.229A Contusion of unspecified back wall of thorax, initial encounter; V43.51XA Car driver injured in collision with sport utility vehicle in traffic accident, initial encounter; M25.551 Pain in right hip; M54.2 Cervicalgia; M54.6 Pain in thoracic spine; M54.5 Low back pain; R07.9 Chest pain, unspecified; R51 Headache
CPT/HCPCS: 36000; 36415; 70450; 71260; 72125; 74177; 76376; 80053; 81025; 83690; 85025; 96374; 96375; 99285; J2270; J2405; J3010

== ENCOUNTER 2022-08-25 10:28 | Emergency (ER) | payer OTHER ==
--- NOTE | 2022-08-25 10:33 | ERPHSYRPT ---
- History of Present Illness Time Seen by Provider: 08/25/22 10:32 Historian: patient Exam Limitations: no limitations Physician History: This a 26-year-old white female who is approximately 9 weeks and had her initial appointment with Dr. Higgins within the last couple of weeks. The patient states that she began having some mild periumbilical pain last night. This morning, the periumbilical pain is still present at a level of 2 out of 10 but she is noticing some sharp, intermittent pains in her suprapubic region. She has had no vaginal bleeding. She did have a quantitative hCG level drawn on 08/03/2022 and this was over 29,000. Patient denies chest pain. She denies shortness of breath. She denies vomiting and diarrhea. She has not had any fevers. She has not had a cough. She denies flank pain and she denies dysuria Timing/Duration: yesterday Quality: sharpness, stabbing Abdominal Pain Onset Location: periumbilical, suprapubic Severity of Pain-Max: mild Severity of Pain-Current: mild Modifying Factors: Improves With: nothing Associated Symptoms: nausea, No chest pain, No diarrhea, No shortness of breath, No vomiting Previous symptoms: no prior history Allergies/Adverse Reactions: No Known Drug Allergies Allergy (Verified 09/24/17 00:58) Home Medications: Levothyroxine Sodium [Levothyroxine] 112 mcg PO DAILY 08/25/22 [History] Hx Tetanus, Diphtheria Vaccination/Date Given: No Hx Influenza Vaccination/Date Given: No Hx Pneumococcal Vaccination/Date Given: No Travel Risk - International Travel Have you traveled outside of the country in past 3 weeks: No - Coronavirus Screening Are you exhibiting any of the following symptoms?: No Close contact with a COVID-19 positive Pt in past 14-21 Days: No - Review of Systems Constitutional: No Symptoms Eyes: No Symptoms Ears, Nose, & Throat: No Symptoms Respiratory: No Symptoms Cardiac: No Symptoms Abdominal/Gastrointestinal: Abdominal Pain, Nausea, No Vomiting, No Diarrhea, No Constipation Genitourinary Symptoms: No Symptoms Musculoskeletal: No Symptoms Skin: No Symptoms Neurological: No Symptoms Psychological: No Symptoms Endocrine: No Symptoms Hematologic/Lymphatic: No Symptoms Immunological/Allergic: No Symptoms All Other Systems: Reviewed and Negative - Past Medical History Pertinent Past Medical History: Yes Neurological History: Seizures ENT History: No Pertinent History Cardiac History: Other Respiratory History: No Pertinent History Endocrine Medical History: Other Musculoskeletal History: No Pertinent History GI Medical History: Gallbladder Disease History: No Pertinent History Psycho-Social History: No Pertinent History Female Reproductive Disorders: No Pertinent History Other Medical History: Graves diseate , non epileptic seizures, heart murmer thyroid iradiation - Past Surgical History Past Surgical History: Yes Neuro Surgical History: No Pertinent History Cardiac: Other Respiratory: No Pertinent History Gastrointestinal: Cholecystectomy Genitourinary: No Pertinent History Musculoskeletal: No Pertinent History Female Surgical History: No Pertinent History Other Surgical History: states heart murmur surgery, gallstrone removal and then melisa - Social History Smoking Status: Current every day smoker How long have you smoked: 13 years Exposure to second hand smoke: Yes Drug Use: marijuana Patient Lives Alone: No Significant Family History: no pertinent family hx - Nursing Vital Signs Nursing Vital Signs: Initial Vital Signs Temperature 97.2 F 08/25/22 10:41 Pulse Rate 80 08/25/22 10:41 Respiratory Rate 20 08/25/22 10:41 Blood Pressure 106/66 08/25/22 10:41 O2 Sat by Pulse Oximetry 100 08/25/22 10:41 Pain Scale Pain Intensity 0 - Physical Exam General Appearance: no apparent distress, alert Eye Exam: PERRL/EOMI, eyes nml inspection Ears, Nose, Throat Exam: normal ENT inspection, moist mucous membranes Neck Exam: normal inspection, non-tender, supple, full range of motion Respiratory Exam: normal breath sounds, lungs clear, No chest tenderness, No respiratory distress Cardiovascular Exam: regular rate/rhythm, normal heart sounds, No normal peripheral pulses Gastrointestinal/Abdomen Exam: soft, normal bowel sounds, tenderness (Mild s uprapubic to palpation), No guarding, No pulsatile mass, No rebound Pelvic Exam: not done Rectal Exam: not done Back Exam: normal inspection, normal range of motion, No CVA tenderness, No vertebral tenderness Extremity Exam: normal inspection, normal range of motion, pelvis stable Neurologic Exam: alert, oriented x 3, cooperative, machine repairer II-XII nml as tested, normal mood/affect, nml cerebellar function, nml station & gait, sensation nml Skin Exam: normal color, warm, dry Lymphatic Exam: No adenopathy SpO2 Interpretation: normal O2 Delivery: Room Air - Course Nursing assessment & vital signs reviewed: Yes Ordered Tests: Active Orders 24 hr Category Date Time Status OB FOLLOW UP PER FETUS [US] Stat Exams 08/25/22 13:06 Completed CBC W DIFF Stat Lab 08/25/22 11:14 Completed CMP Stat Lab 08/25/22 11:14 Completed HCG, Quantitative (Inhouse) Stat Lab 08/25/22 11:14 Completed UA W/RFX CULTURE Stat Lab 08/25/22 11:08 Completed Lab/Rad Data: Laboratory Result Diagrams 08/25/22 11:14 08/25/22 11:14 Laboratory Results 08/25/22 08/25/22 08/25/22 Range/Units 11:14 11:14 11:08 WBC 7.4 (4.0-10.5) x10^3/uL RBC 4.24 (4.1-5.4) x10^6/uL Hgb 13.0 (12.0-16.0) g/dL Hct 40.5 (35-47) % MCV 95.5 (78-100) fL MCH 30.7 (26-32) pg MCHC 32.1 (32-36) g/dL RDW 15.0 H (11.5-14.0) % Plt Count 297 (150-450) x10^3/uL MPV 9.1 (7.5-11.0) fL Gran % 63.3 (36.0-66.0) % Immature Gran % (Auto) 0.3 (0.00-0.4) % Nucleat RBC Rel Count 0.0 (0.00-0.1) % Eos # (Auto) 0.45 (0-0.5) x10^3/uL Immature Gran # (Auto) 0.02 (0.00-0.03) x10^3u/L Absolute Lymphs (auto) 1.70 (1.0-4.6) x10^3/uL Absolute Monos (auto) 0.48 (0.0-1.3) x10^3/uL Absolute Nucleated RBC 0.00 (0.00-0.01) x10^3u/L Lymphocytes % 23.1 L (24.0-44.0) % Monocytes % 6.5 (0.0-12.0) % Eosinophils % 6.1 H (0.00-5.0) % Basophils % 0.7 (0.0-0.4) % Absolute Granulocytes 4.67 (1.4-6.9) x10^3/uL Basophils # 0.05 (0-0.4) x10^3/uL Sodium 134 L (137-145) mmol/L Potassium 4.1 (3.5-5.1) mmol/L Chloride 104 (98-107) mmol/L Carbon Dioxide 23 (22-30) mmol/L Anion Gap 11.9 (5-15) MEQ/L BUN 11 (7-17) mg/dL Creatinine 0.69 (0.52-1.04) mg/dL Estimated GFR > 60.0 ML/MIN Glucose 83 (74-106) mg/dL Calcium 9.0 (8.4-10.2) mg/dL Total Bilirubin 0.50 (0.2-1.3) mg/dL AST 25 (14-36) U/L ALT 21 (0-35) U/L Alkaline Phosphatase 49 (38-126) U/L Serum Total Protein 7.7 (6.3-8.2) g/dL Albumin 4.6 (3.5-5.0) g/dL Beta HCG, Quant 05509 mIU/ml Urinalys Dipstick Clnc MAIN LAB Urine Color YELLOW (YELLOW) Urine Appearance CLEAR (CLEAR) Urine pH 7.5 (5-6) Ur Specific [place] 1.020 (1.005-1.025) POC Urine Protein Conf NEGATIVE (Negative) Urine Ketones NEGATIVE (NEGATIVE) Urine Nitrite NEGATIVE (NEGATIVE) Urine Bilirubin NEGATIVE (NEGATIVE) Urine Urobilinogen 0.2 (0-1) mg/dL Urine Leukocytes NEGATIVE (NEGATIVE) Urine WBC (Auto) NONE (0-5) /HPF Urine RBC (Auto) NONE (0-2) /HPF U Epithel Cells (Auto) NONE (FEW) /HPF Urine Bacteria (Auto) RARE (NEGATIVE) /HPF Urine RBC NEGATIVE (0-5) [place]/ul Ur Culture Indicated? NO Urine Glucose NEGATIVE (NEGATIVE) mg/dL - Progress Progress: pain not gone completely Progress Note: 08/25/22 12:56 Medical decision making: I spoke with patient's telecine operator, Dr. Higgins. I reviewed the patient history, vital signs, physical findings and results of the laboratory work-up. He recommends a ultrasound for heart tones and viability. 08/25/22 13:47 The audio visual tech informed me that there was collapse of the sac as well as no audible or visible heart tones. This is different than a prior ultrasound that was done in the patient's obstetric office. I did call the patient's telecine operator and spoke with him about the finding. He is concerned about a spontaneous miscarriage. He did want me to tell the patient that he would be glad to discuss with her the results in his office this afternoon. We will await the final reading from the radiologist. 08/25/22 13:58 The final read from the radiologist on the OB ultrasound shows a single intrauterine . 6 weeks and 6 days with no heart tones. Correlate with serial beta hCG and follow-up sonogram regarding viability. Patient is aware of these findings. We faxed the final results to Dr. Higgins's office. We are also sending the patient over to discuss these findings and plan of care moving forward with him. Discussed with : Law Counseled pt/family regarding: lab results, diagnosis, need for follow-up - Departure Departure Disposition: Home Clinical Impression: heart tones not heard, Suprapubic pain Condition: Stable Critical Care Time: No Referrals: DOCTOR,NO FAMILY [Primary Care Provider] - Follow up/PCP as directed Additional Instructions: Drink plenty of fluids. You may follow-up with Dr. Higgins in his office this afternoon. He can then discuss with you plan of care from this point forward.
[2022-08-25 11:24] LABS: Absolute Neutrophil Ct (ANC) 4.67 x10^3/uL (1.4-6.9); Basophil (Absolute #) 0.05 x10^3/uL (0-0.4); Eosinophil % 6.1 % (0.00-5.0); Eosinophil (Absolute #) 0.45 x10^3/uL (0-0.5); Hematocrit 40.5 % (35-47); Lymphocytes % 23.1 % (24.0-44.0); Mean Cell Volume 95.5 fL (78-100); Mean Corpuscular Hemoglobin 30.7 pg (26-32); Mean Corpuscular Hgb Concent. 32.1 g/dL (32-36); Mean Platelet Volume 9.1 fL (7.5-11.0); Monocyte (Absolute #) 0.48 x10^3/uL (0.0-1.3); Monocytes % 6.5 % (0.0-12.0); Neutrophil % 63.3 % (36.0-66.0); Platelet Count 297 x10^3/uL (150-450); Red Blood Count 4.24 x10^6/uL (4.1-5.4); White Blood Count 7.4 x10^3/uL (4.0-10.5)
[2022-08-25 11:26] LABS: Appearance CLEAR (CLEAR); Bilirubin NEGATIVE (NEGATIVE); Glucose NEGATIVE (NEGATIVE); Ketones NEGATIVE (NEGATIVE)
[2022-08-25 11:27] LABS: Dipstick done @ ? MAIN LAB; Nitrite NEGATIVE (NEGATIVE); Ph 7.5 (5-6); Protein,Urine Dip NEGATIVE (Negative); RBC NEGATIVE Ery/ul (0-5); Urobilinogen 0.2 mg/dL (0-1)
[2022-08-25 11:30] LABS: Bacteria RARE /HPF (NEGATIVE)
[2022-08-25 11:35] VITALS: O2SAT 98
[2022-08-25 11:54] LABS: ALBUMIN 4.6 g/dL (3.5-5.0); ALKALINE PHOSPHATASE 49 U/L (38-126); ANION GAP 11.9 MEQ/L (5-15); BLOOD UREA NITROGEN 11 mg/dL (7-17); CHLORIDE 104 mmol/L (98-107); Carbon Dioxide 23 mmol/L (22-30); Creatinine 1 0.69 mg/dL (0.52-1.04); EST GLOMERULAR FILTRATION RATE > 60.0 ML/MIN; Glucose 83 mg/dL (74-106); Potassium 4.1 mmol/L (3.5-5.1); SGOT/AST 25 U/L (14-36); SGPT/ALT 21 U/L (0-35); SODIUM 134 mmol/L (137-145); Total Protein 7.7 g/dL (6.3-8.2)
[2022-08-25 12:47] LABS: HCG, Quantitative (Inhouse) 66525 mIU/ml
[2022-08-25 12:59] LABS: Urine Cultured Indicated? NO
--- NOTE | 2022-08-25 13:51 | XRAY ---
Indication: Pain. Two-dimensional transvaginal early OB ultrasound demonstrates a single intrauterine gestational sac with presence of a single pole. Mean sac diameter is 2.77 cm corresponding to 7 weeks 4 days. Mean crown-rump length is 0.43 cm corresponding to 6 weeks 1 day. No heart tones detected. Endocervix demonstrates tiny sliver of nonspecific fluid. Left and right ovaries are sonographically unremarkable. Impression: Single intrauterine measuring 6 weeks 6 days. No heart tones detected. Correlate with serial beta hCG and follow-up sonogram regarding viability.
[2022-08-25 14:02] VITALS: BP 122/79; PULSE 74
== END 2022-08-25 14:09 ==
LOC: ED 10:28
DX: O26.891 Other specified pregnancy related conditions, first trimester (principal); Z3A.09 9 weeks gestation of pregnancy; R10.2 Pelvic and perineal pain; R10.33 Periumbilical pain; Z72.0 Tobacco use; Z79.899 Other long term (current) drug therapy
CPT/HCPCS: 36415; 76816; 80053; 81015; 84702; 85025; 99283

== ENCOUNTER 2023-01-04 17:46 | Emergency (ER) | payer OTHER ==
[2023-01-04 18:17] VITALS: BP 118/74; PULSE 96; O2SAT 98
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
[2023-01-04 18:43] LABS: Appearance Clear (Clear); Bacteria None Seen /HPF (None Seen); Bilirubin Negative (Negative); Blood Negative (Negative); Epithelial Cells None Seen /HPF (None Seen); Glucose, Urine Negative (Negative); Hyaline Casts NONE SEEN /LPF (0-2); Ketones Negative (Negative); Leukocyte Esterase Negative (Negative); Nitrite Negative (Negative); Ph 5.5 (4.6-8.0); Protein,Urine Dip Negative (Negative); RBC 0-2 /HPF (0-5); Urobilinogen 0.2 mg/dL (0.2); WBC 0-2 /HPF (0-5)
[2023-01-04 18:50] LABS: ADD URINE CULTURE? NO (NO)
[2023-01-04 18:53] LABS: Absolute Neutrophil Ct (ANC) 6.23 x10^3/uL (1.4-6.9); BASOPHIL % 0.4 % (0.0-0.4); Basophil (Absolute #) 0.04 x10^3/uL (0-0.4); Eosinophil % 4.7 % (0.00-5.0); Eosinophil (Absolute #) 0.46 x10^3/uL (0-0.5); Hematocrit 39.4 % (35-47); Hemoglobin 12.8 g/dL (12.0-16.0); IMMATURE GRAN # 0.02 x10^3u/L (0.00-0.03); IMMATURE GRAN % 0.2 % (0.00-0.4); Lymphocyte (Absolute #) 2.34 x10^3/uL (1.0-4.6); Lymphocytes % 23.9 % (24.0-44.0); Mean Cell Volume 94.3 fL (78-100); Mean Corpuscular Hemoglobin 30.6 pg (26-32); Mean Corpuscular Hgb Concent. 32.5 g/dL (32-36); Mean Platelet Volume 9.2 fL (7.5-11.0); Monocytes % 7.2 % (0.0-12.0); Neutrophil % 63.6 % (36.0-66.0); Platelet Count 310 x10^3/uL (150-450); Red Blood Count 4.18 x10^6/uL (4.1-5.4); Red Cell Distribution Width 13.4 % (11.5-14.0); White Blood Count 9.8 x10^3/uL (4.0-10.5)
[2023-01-04 19:24] LABS: ALBUMIN 4.3 g/dL (3.5-5.0); ALKALINE PHOSPHATASE 51 U/L (38-126); ANION GAP 13.4 MEQ/L (5-15); BLOOD UREA NITROGEN 13 mg/dL (7-17); CHLORIDE 102 mmol/L (98-107); Calcium 9.3 mg/dL (8.4-10.2); Carbon Dioxide 26 mmol/L (22-30); EST GLOMERULAR FILTRATION RATE > 60.0 ML/MIN; Glucose 89 mg/dL (74-106); Potassium 4.4 mmol/L (3.5-5.1); SGOT/AST 24 U/L (14-36); SGPT/ALT 25 U/L (0-35); SODIUM 137 mmol/L (137-145); Total Protein 7.3 g/dL (6.3-8.2)
[2023-01-04 19:49] LABS: HCG, Quantitative (Inhouse) 93919 mIU/ml
[2023-01-04 20:45] LABS: Candida Group NOT DETECTED (NEGATIVE)
[2023-01-04 20:58] LABS: CHLAMYDIA DNA NOT DETECTED (NEGATIVE); GC DNA Probe NOT DETECTED (NEGATIVE)
--- NOTE | 2023-01-05 08:33 | XRAY ---
Indication: viability. Two-dimensional transabdominal early OB ultrasound performed. Comparison: None for this . Single intrauterine gestational sac with presence of single pole. Mean crown-rump length measures 2.36 cm corresponding to 9 weeks 0 days. heart rate 183 BPM. No abnormal subchorionic fluid. Right ovary sonographically unremarkable. Nonvisualization left ovary. No suspicious adnexal mass. Impression: Single viable intrauterine measuring 9 weeks 0 days. Expected date confinement is August 09, 2023. Comment: Preliminary report was given.
== END 2023-01-04 21:11 | disposition home or self-care (01) ==
LOC: ED 17:46
DX: O26.891 Other specified pregnancy related conditions, first trimester (principal); Z3A.09 9 weeks gestation of pregnancy; R10.2 Pelvic and perineal pain; Z28.310 Unvaccinated for COVID-19; Z79.899 Other long term (current) drug therapy
CPT/HCPCS: 36415; 76801; 80053; 81001; 84702; 85025; 87481; 87491; 87591; 87661; 87801; 99283

== ENCOUNTER 2023-03-18 17:19 | Emergency (ER) | payer OTHER ==
--- NOTE | 2023-03-18 17:40 | ERPHSYRPT ---
- History of Present Illness Time Seen by Provider: 03/18/23 17:36 Source: patient Exam Limitations: no limitations Physician History: Patient is a 27-year-old 1 para 0 AB 1 who presents at approximately 19 weeks gestation with complaint of not being able to find heart tones and having near syncopal episodes. Her previous miscarriage was in September her due date is in July 2023. She did not complain of any particular cramping or pain.Patient did call Dr. Higgins and he recommended she come to the ER for a check of her electrolytes. Timing/Duration: today Modifying Factors: Improves With: nothing Allergies/Adverse Reactions: No Known Drug Allergies Allergy (Verified 03/18/23 17:26) Home Medications: Levothyroxine Sodium [Levothyroxine] 200 mcg PO DAILY 08/25/22 [History] Hx Tetanus, Diphtheria Vaccination/Date Given: No Hx Influenza Vaccination/Date Given: No Hx Pneumococcal Vaccination/Date Given: No Travel Risk - Vaccine Status Have you recieved a Covid-19 vaccination: No - Review of Systems Constitutional: No Fever, No Chills Eyes: No Symptoms Ears, Nose, & Throat: No Symptoms Respiratory: No Cough, No Dyspnea Cardiac: No Chest Pain, No Edema, No Syncope Abdominal/Gastrointestinal: No Abdominal Pain, No Nausea, No Vomiting, No Diarrhea Genitourinary Symptoms: No Dysuria Musculoskeletal: No Back Pain, No Neck Pain Skin: No Rash Neurological: No Dizziness, No Focal Weakness, No Sensory Changes Psychological: No Symptoms Endocrine: No Symptoms All Other Systems: Reviewed and Negative - Past Medical History Pertinent Past Medical History: Yes Neurological History: Seizures ENT History: No Pertinent History Cardiac History: Other Respiratory History: No Pertinent History Endocrine Medical History: Other Musculoskeletal History: No Pertinent History GI Medical History: Gallbladder Disease History: No Pertinent History Psycho-Social History: No Pertinent History Female Reproductive Disorders: No Pertinent History Other Medical History: Graves diseate , non epileptic seizures, heart murmer thyroid iradiation - Past Surgical History Past Surgical History: Yes Neuro Surgical History: No Pertinent History Cardiac: Other Respiratory: No Pertinent History Gastrointestinal: Cholecystectomy Genitourinary: No Pertinent History Musculoskeletal: No Pertinent History Female Surgical History: No Pertinent History Other Surgical History: states heart murmur surgery, gallstrone removal and then melisa - Social History Smoking Status: Current every day smoker How long have you smoked: 13 years Exposure to second hand smoke: Yes Drug Use: marijuana Patient Lives Alone: No Significant Family History: no pertinent family hx - Nursing Vital Signs Nursing Vital Signs: Initial Vital Signs Blood Pressure 123/67 03/18/23 17:25 O2 Sat by Pulse Oximetry 98 03/18/23 17:25 Pain Scale Pain Intensity 0 - Physical Exam General Appearance: no apparent distress, alert Eye Exam: PERRL/EOMI, eyes nml inspection Ears, Nose, Throat Exam: normal ENT inspection, TMs normal, pharynx normal, moist mucous membranes Neck Exam: normal inspection, non-tender, supple, full range of motion Respiratory Exam: normal breath sounds, lungs clear, No respiratory distress Cardiovascular Exam: regular rate/rhythm, normal heart sounds, normal peripheral pulses Gastrointestinal/Abdomen Exam: soft, normal bowel sounds, other (Gravid uterus heart tones positive by Doppler), No tenderness, No mass Pelvic Exam: not done Rectal Exam: deferred Back Exam: normal inspection, normal range of motion, No CVA tenderness, No vertebral tenderness Extremity Exam: normal inspection, normal range of motion, pelvis stable Neurologic Exam: alert, oriented x 3, cooperative, normal mood/affect, nml cerebellar function, nml station & gait, sensation nml, No motor deficits Skin Exam: normal color, warm, dry, No rash Lymphatic Exam: No adenopathy - Course Nursing assessment & vital signs reviewed: Yes Ordered Tests: Active Orders 24 hr Category Date Time Status IV Insertion STAT Care 03/18/23 17:53 Active CBC W DIFF Stat Lab 03/18/23 17:30 Completed CMP Stat Lab 03/18/23 17:30 Completed UA W/RFX UR CULTURE Stat Lab 03/18/23 18:20 Completed Lab/Rad Data: Laboratory Result Diagrams 03/18/23 17:30 03/18/23 17:30 Laboratory Results 03/18/23 03/18/23 03/18/23 Range/Units 18:20 17:30 17:30 WBC 8.8 (4.0-10.5) x10^3/uL RBC 3.61 L (4.1-5.4) x10^6/uL Hgb 11.0 L (12.0-16.0) g/dL Hct 33.8 L (35-47) % MCV 93.6 (78-100) fL MCH 30.5 (26-32) pg MCHC 32.5 (32-36) g/dL RDW 14.6 H (11.5-14.0) % Plt Count 296 (150-450) x10^3/uL MPV 9.9 (7.5-11.0) fL Gran % 67.8 H (36.0-66.0) % Immature Gran % (Auto) 0.3 (0.00-0.4) % Nucleat RBC Rel Count 0.0 (0.00-0.1) % Eos # (Auto) 0.31 (0-0.5) x10^3/uL Immature Gran # (Auto) 0.03 (0.00-0.03) x10^3u/L Absolute Lymphs (auto) 1.83 (1.0-4.6) x10^3/uL Absolute Monos (auto) 0.64 (0.0-1.3) x10^3/uL Absolute Nucleated RBC 0.00 (0.00-0.01) x10^3u/L Lymphocytes % 20.9 L (24.0-44.0) % Monocytes % 7.3 (0.0-12.0) % Eosinophils % 3.5 (0.00-5.0) % Basophils % 0.2 (0.0-0.4) % Absolute Granulocytes 5.94 (1.4-6.9) x10^3/uL Basophils # 0.02 (0-0.4) x10^3/uL Sodium 136 L (137-145) mmol/L Potassium 4.1 (3.5-5.1) mmol/L Chloride 106 (98-107) mmol/L Carbon Dioxide 20 L (22-30) mmol/L Anion Gap 13.6 (5-15) MEQ/L BUN 11 (7-17) mg/dL Creatinine 0.54 (0.52-1.04) mg/dL Estimated GFR > 60.0 ML/MIN Glucose 115 H (74-106) mg/dL Calcium 8.7 (8.4-10.2) mg/dL Total Bilirubin 0.40 (0.2-1.3) mg/dL AST 62 H (14-36) U/L ALT 74 H (0-35) U/L Alkaline Phosphatase 61 (38-126) U/L Serum Total Protein 6.9 (6.3-8.2) g/dL Albumin 3.7 (3.5-5.0) g/dL Urine Color Yellow (Yellow) Urine Appearance Clear (Clear) Urine pH 5.5 (4.6-8.0) Ur Specific [place] 1.020 (1.005-1.030) Urine Protein Negative (Negative) Urine Glucose (UA) Negative (Negative) mg/dL Urine Ketones Negative (Negative) Urine Blood Negative (Negative) Urine Nitrite Negative (Negative) Urine Bilirubin Negative (Negative) Urine Urobilinogen 1.0 A (0.2) mg/dL Ur Leukocyte Esterase Negative (Negative) U Hyaline Cast (Auto) NONE SEEN (0-2) /LPF Urine Microscopic RBC 0-2 (0-5) /HPF Urine Microscopic WBC 3-5 (0-5) /HPF Ur Epithelial Cells Rare (None Seen) /HPF Urine Bacteria Rare A (None Seen) /HPF Urine Culture Reflexed NO (NO) - Progress Progress: improved Discussed with Dr.: Foy Medical Desision Making - Independent Historian Additional History obtained from: Spouse - Discussion of managment Care discussed with:: specialist (SEO ENGINEER) Reviewed:: Test results Agreed on:: Treatment plan, need for follow-up Will see patient: In office - Diagnostic Testing Diagnostic test were ordered, analyzed, and reviewed by me: Yes - Risk of complications Low Risk: Low risk of morbidity from additional dx testing or treatment - Departure Departure Disposition: Home Clinical Impression: Syncope Condition: Stable Critical Care Time: No Instructions: Syncope (Fainting) (DC)
[2023-03-18 17:52] LABS: Absolute Neutrophil Ct (ANC) 5.94 x10^3/uL (1.4-6.9); BASOPHIL % 0.2 % (0.0-0.4); Basophil (Absolute #) 0.02 x10^3/uL (0-0.4); Eosinophil % 3.5 % (0.00-5.0); Eosinophil (Absolute #) 0.31 x10^3/uL (0-0.5); Hematocrit 33.8 % (35-47); IMMATURE GRAN # 0.03 x10^3u/L (0.00-0.03); IMMATURE GRAN % 0.3 % (0.00-0.4); Lymphocyte (Absolute #) 1.83 x10^3/uL (1.0-4.6); Lymphocytes % 20.9 % (24.0-44.0); Mean Cell Volume 93.6 fL (78-100); Mean Corpuscular Hemoglobin 30.5 pg (26-32); Mean Corpuscular Hgb Concent. 32.5 g/dL (32-36); Mean Platelet Volume 9.9 fL (7.5-11.0); Monocyte (Absolute #) 0.64 x10^3/uL (0.0-1.3); Monocytes % 7.3 % (0.0-12.0); Neutrophil % 67.8 % (36.0-66.0); Platelet Count 296 x10^3/uL (150-450); Red Blood Count 3.61 x10^6/uL (4.1-5.4); Red Cell Distribution Width 14.6 % (11.5-14.0); White Blood Count 8.8 x10^3/uL (4.0-10.5)
[2023-03-18 18:07] LABS: ALBUMIN 3.7 g/dL (3.5-5.0); ALKALINE PHOSPHATASE 61 U/L (38-126); ANION GAP 13.6 MEQ/L (5-15); BLOOD UREA NITROGEN 11 mg/dL (7-17); CHLORIDE 106 mmol/L (98-107); Calcium 8.7 mg/dL (8.4-10.2); Carbon Dioxide 20 mmol/L (22-30); Creatinine 1 0.54 mg/dL (0.52-1.04); EST GLOMERULAR FILTRATION RATE > 60.0 ML/MIN; Glucose 115 mg/dL (74-106); Potassium 4.1 mmol/L (3.5-5.1); SGOT/AST 62 U/L (14-36); SGPT/ALT 74 U/L (0-35); SODIUM 136 mmol/L (137-145); Total Protein 6.9 g/dL (6.3-8.2)
[2023-03-18 18:25] LABS: Appearance Clear (Clear); Bacteria Rare /HPF (None Seen); Bilirubin Negative (Negative); Blood Negative (Negative); Epithelial Cells Rare /HPF (None Seen); Glucose, Urine Negative (Negative); Hyaline Casts NONE SEEN /LPF (0-2); Ketones Negative (Negative); Leukocyte Esterase Negative (Negative); Nitrite Negative (Negative); Ph 5.5 (4.6-8.0); Protein,Urine Dip Negative (Negative); RBC 0-2 /HPF (0-5)
[2023-03-18 18:30] LABS: ADD URINE CULTURE? NO (NO)
[2023-03-18 18:46] VITALS: BP 96/57; PULSE 92; O2SAT 98
== END 2023-03-18 18:56 | disposition home or self-care (01) ==
LOC: ED 17:19
DX: R55 Syncope and collapse (principal); Z33.1 Pregnant state, incidental; Z79.899 Other long term (current) drug therapy; Z28.310 Unvaccinated for COVID-19; Z72.0 Tobacco use
CPT/HCPCS: 36000; 36415; 80053; 81001; 84443; 85025; 99283

== ENCOUNTER 2023-06-21 16:47 | Emergency (ER) | payer OTHER ==
[2023-06-21 17:19] VITALS: TEMP 98.7
--- NOTE | 2023-06-21 17:48 | ERPHSYRPT ---
- History of Present Illness Time Seen by Provider: 06/21/23 17:43 Source: patient Exam Limitations: no limitations Patient Subjective Stated Complaint: pt here for nausea and vomiting for 2 weeks off and on.she states she feels like she has something stuck in throat and only thing that helps is vomiting Triage Nursing Assessment: pt alert, resp easy, walked in, skin w/d/p, abd rounded, no vaginal bleeding, Physician History: Patient is a 27-year-old female M1 currently 32 weeks presents to our ED with complaints of a fullness sensation in her neck. Patient describes it as a bubble that tends to occur when she lays flat. Patient states the symptoms have been ongoing for approximately 2 weeks. Patient has not followed up with her primary care provider regarding her symptoms. No nausea vomiting or diaphoresis. Patient does states she felt some pain in her abdomen however this has since resolved. Patient currently asymptomatic. She voices no other complaints or concerns at this time. Portions of this note were created with voice recognition technology. There may be grammatical, spelling, punctuation or sound alike errors Timing/Duration: week(s) Severity: moderate (2 weeks) Modifying Factors: Improves With: nothing Associated Symptoms: denies symptoms Allergies/Adverse Reactions: No Known Drug Allergies Allergy (Verified 06/21/23 17:16) Home Medications: Levothyroxine Sodium [Levothyroxine] 212 mcg PO DAILY 08/25/22 [History] Hx Tetanus, Diphtheria Vaccination/Date Given: No Hx Influenza Vaccination/Date Given: No Hx Pneumococcal Vaccination/Date Given: No Immunizations Up to Date: Yes Travel Risk - International Travel Have you traveled outside of the country in past 3 weeks: No - Coronavirus Screening Are you exhibiting any of the following symptoms?: No Close contact with a COVID-19 positive Pt in past 14-21 Days: No - Vaccine Status Have you recieved a Covid-19 vaccination: No - Review of Systems Constitutional: No Symptoms, No Fever, No Chills Eyes: No Symptoms Ears, Nose, & Throat: No Symptoms Respiratory: No Symptoms, No Cough, No Dyspnea Cardiac: No Symptoms, No Chest Pain, No Edema, No Syncope Abdominal/Gastrointestinal: No Symptoms, No Abdominal Pain, No Nausea, No Vomiting, No Diarrhea Genitourinary Symptoms: No Symptoms, No Dysuria Musculoskeletal: No Symptoms, No Back Pain, No Neck Pain Skin: No Symptoms, No Rash Neurological: No Symptoms, No Dizziness, No Focal Weakness, No Sensory Changes Psychological: No Symptoms Endocrine: No Symptoms Hematologic/Lymphatic: No Symptoms Immunological/Allergic: No Symptoms All Other Systems: Reviewed and Negative - Past Medical History Pertinent Past Medical History: Yes Neurological History: Seizures ENT History: No Pertinent History Cardiac History: Other Respiratory History: No Pertinent History Endocrine Medical History: Other Musculoskeletal History: No Pertinent History GI Medical History: Gallbladder Disease History: No Pertinent History Psycho-Social History: No Pertinent History Female Reproductive Disorders: No Pertinent History Other Medical History: Graves disease , non epileptic seizures, heart murmer thyroid iradiation - Past Surgical History Past Surgical History: Yes Neuro Surgical History: No Pertinent History Cardiac: Other Respiratory: No Pertinent History Gastrointestinal: Cholecystectomy Genitourinary: No Pertinent History Musculoskeletal: No Pertinent History Female Surgical History: No Pertinent History Other Surgical History: states heart murmur surgery, gallstrone removal and then melisa - Social History Smoking Status: Current every day smoker How long have you smoked: 13 years Exposure to second hand smoke: Yes Drug Use: marijuana Patient Lives Alone: No Significant Family History: no pertinent family hx - Female History Hx Last Menstrual Period: 2022 Hx Now: Yes Gestational Age: 35 - Nursing Vital Signs Nursing Vital Signs: Initial Vital Signs Temperature 98.7 F 06/21/23 17:17 Pulse Rate 91 H 06/21/23 17:17 Respiratory Rate 18 06/21/23 17:17 Blood Pressure 102/68 06/21/23 17:17 O2 Sat by Pulse Oximetry 97 06/21/23 17:17 Pain Scale Pain Intensity 0 - Physical Exam General Appearance: no apparent distress, alert Eye Exam: PERRL/EOMI, eyes nml inspection Ears, Nose, Throat Exam: normal ENT inspection, TMs normal, pharynx normal, moist mucous membranes Neck Exam: normal inspection, non-tender, supple, full range of motion Respiratory Exam: normal breath sounds, lungs clear, airway intact, No respiratory distress Cardiovascular Exam: regular rate/rhythm, normal heart sounds, normal peripheral pulses Gastrointestinal/Abdomen Exam: soft, normal bowel sounds, No tenderness, No mass Back Exam: normal inspection, normal range of motion, No CVA tenderness, No vertebral tenderness Extremity Exam: normal inspection, normal range of motion, pelvis stable Neurologic Exam: alert, oriented x 3, cooperative, normal mood/affect, nml cerebellar function, nml station & gait, sensation nml, No motor deficits Skin Exam: normal color, warm, dry, No rash Lymphatic Exam: No adenopathy SpO2 Interpretation: normal SpO2: 97 O2 Delivery: Room Air - Course Nursing assessment & vital signs reviewed: Yes EKG Interpreted by Me: RATE ([id number]), Sinus Rhythm, NORMAL AXIS, NORMAL INTERVALS Ordered Tests: Active Orders 24 hr Category Date Time Status [employer] Cord STAT Care 06/21/23 17:41 Active EKG-ER Only STAT Care 06/21/23 17:41 Active IV Insertion STAT Care 06/21/23 17:41 Active Pulse Oximetry (ED) STAT Care 06/21/23 17:41 Active CBC W DIFF Stat Lab 06/21/23 17:55 Completed CMP Stat Lab 06/21/23 17:55 Completed TROPONIN Q4H Lab 06/21/23 17:55 Completed TROPONIN Q4H Lab 06/21/23 21:45 Ordered TROPONIN Q4H Lab 06/22/23 01:45 Ordered Lab/Rad Data: Laboratory Result Diagrams 06/21/23 17:55 06/21/23 17:55 Laboratory Results 06/21/23 06/21/23 06/21/23 Range/Units 17:55 17:55 17:55 WBC 8.9 (4.0-10.5) x10^3/uL RBC 3.65 L (4.1-5.4) x10^6/uL Hgb 10.5 L (12.0-16.0) g/dL Hct 32.4 L (35-47) % MCV 88.8 (78-100) fL MCH 28.8 (26-32) pg MCHC 32.4 (32-36) g/dL RDW 13.4 (11.5-14.0) % Plt Count 319 (150-450) x10^3/uL MPV 9.9 (7.5-11.0) fL Gran % 66.3 H (36.0-66.0) % Immature Gran % (Auto) 0.3 (0.00-0.4) % Nucleat RBC Rel Count 0.0 (0.00-0.1) % Eos # (Auto) 0.42 (0-0.5) x10^3/uL Immature Gran # (Auto) 0.03 (0.00-0.03) x10^3u/L Absolute Lymphs (auto) 1.90 (1.0-4.6) x10^3/uL Absolute Monos (auto) 0.63 (0.0-1.3) x10^3/uL Absolute Nucleated RBC 0.00 (0.00-0.01) x10^3u/L Lymphocytes % 21.4 L (24.0-44.0) % Monocytes % 7.1 (0.0-12.0) % Eosinophils % 4.7 (0.00-5.0) % Basophils % 0.2 (0.0-0.4) % Absolute Granulocytes 5.89 (1.4-6.9) x10^3/uL Basophils # 0.02 (0-0.4) x10^3/uL Sodium 138 (137-145) mmol/L Potassium 3.5 (3.5-5.1) mmol/L Chloride 109 H (98-107) mmol/L Carbon Dioxide 20 L (22-30) mmol/L Anion Gap 12.2 (5-15) MEQ/L BUN 4 L (7-17) mg/dL Creatinine 0.51 L (0.52-1.04) mg/dL Estimated GFR > 60.0 ML/MIN Glucose 99 (74-106) mg/dL Calcium 8.1 L (8.4-10.2) mg/dL Total Bilirubin 0.40 (0.2-1.3) mg/dL AST 27 (14-36) U/L ALT 19 (0-35) U/L Alkaline Phosphatase 177 H (38-126) U/L Troponin I < 0.012 (0.000-0.034) ng/mL Serum Total Protein 5.7 L (6.3-8.2) g/dL Albumin 3.0 L (3.5-5.0) g/dL - Progress Progress: improved Progress Note: 06/21/23 19:[address] Higgins 192. No need to follow-up in the [facility] department for evaluation. Dr. Bell agrees that patient's symptomology appears to be reflux. Patient to be discharged with a prescription for omeprazole. Patient to call Dr. Babcock in the morning for follow-up. Portions of this note were created with voice recognition technology. There may be grammatical, spelling, punctuation or sound alike errors 27-year-old female 33 weeks presents to our ED with fullness in her neck when she lays flat. Symptoms ongoing for 3 weeks. No other complaints. Patient denies any symptomology regarding her . Test ordered include EKG CBC CMP troponin. Work-up essentially nonremarkable. Case discussed with patient's [facility] physician who advised omeprazole. We do not have omeprazole in our ED. A prescription for omeprazole was forwarded to patient's pharmacy. Patient agrees to follow-up with her [facility] physician tomorrow morning to schedule a follow-up appointment. Patient currently feeling well. No active complaints. Will discharge home. Complexity problem addressed is moderate acute complicated Complex of data reviewed and analyzed is extensive. Test ordered. Test reviewed and clinically correlated with physical and history. Management discussed with Dr. Higgins our patient's [facility] physician. Risk of complication and or risk morbidity/mortality of patient management is moderate. A prescription for omeprazole 40 to patient's pharmacy. We will discharge home. Vital stable. Plan of care established for shared decision making. Time spent to discharge patient approximately 15 to 20 minutes. Plan of care established for shared decision making. Patient will call her [facility] physician in the morning for follow-up visit. Portions of this note were created with voice recognition technology. There may be grammatical, spelling, punctuation or sound alike errors 06/21/23 19:[address] Law Will see patient in: office Counseled pt/family regarding: lab results, diagnosis, need for follow-up - Departure Departure Disposition: Home Clinical Impression: GERD (gastroesophageal reflux disease) Condition: Stable Critical Care Time: No Referrals: JAYA CERON MD [Primary Care Provider] - Follow up/PCP as directed Additional Instructions: Discharge/Care Plan TESFAYE FLORES FAROOQ was seen on 06/21/23 in the Emergency Room. The patient was counseled regarding Diagnosis,Lab results, Imaging studies, need for follow up and when to return to the Emergency Room. Prescriptions given: Discharge Note I have spoken with the patient and/or caregivers. I have explained the patient's condition, diagnosis and treatment plan based on the information available to me at this time. I have answered the patient's and/or caregiver's questions and addressed any concerns. The patient and/or caregivers have as good understanding of the patient's diagnosis, condition and treatment plan as can be expected at this point. The vital signs have been stable. The patient's condition is stable and appropriate for discharge from the emergency department. The patient will pursue further outpatient evaluation with the primary care y sician or other designated or consulting physician as outlined in the discharge instructions. The patient and/or caregivers are agreeable to this plan of care and follow-up instructions have been explained in detail. The patient and/or caregivers have received these instruction. The patient/and or caregivers are aware that any significant change in condition or worsening of symptoms should prompt an immediate return to this or the closest emergency department or call 911. Prescriptions: Omeprazole 20 mg PO DAILY 14 Days #14 cap
[2023-06-21 18:03] LABS: Absolute Neutrophil Ct (ANC) 5.89 x10^3/uL (1.4-6.9); BASOPHIL % 0.2 % (0.0-0.4); Basophil (Absolute #) 0.02 x10^3/uL (0-0.4); Eosinophil % 4.7 % (0.00-5.0); Eosinophil (Absolute #) 0.42 x10^3/uL (0-0.5); Hematocrit 32.4 % (35-47); Hemoglobin 10.5 g/dL (12.0-16.0); IMMATURE GRAN # 0.03 x10^3u/L (0.00-0.03); IMMATURE GRAN % 0.3 % (0.00-0.4); Lymphocytes % 21.4 % (24.0-44.0); Mean Cell Volume 88.8 fL (78-100); Mean Corpuscular Hemoglobin 28.8 pg (26-32); Mean Corpuscular Hgb Concent. 32.4 g/dL (32-36); Mean Platelet Volume 9.9 fL (7.5-11.0); Monocyte (Absolute #) 0.63 x10^3/uL (0.0-1.3); Monocytes % 7.1 % (0.0-12.0); Neutrophil % 66.3 % (36.0-66.0); Platelet Count 319 x10^3/uL (150-450); Red Blood Count 3.65 x10^6/uL (4.1-5.4); Red Cell Distribution Width 13.4 % (11.5-14.0); White Blood Count 8.9 x10^3/uL (4.0-10.5)
[2023-06-21 18:15] LABS: ALKALINE PHOSPHATASE 177 U/L (38-126); ANION GAP 12.2 MEQ/L (5-15); BLOOD UREA NITROGEN 4 mg/dL (7-17); CHLORIDE 109 mmol/L (98-107); Calcium 8.1 mg/dL (8.4-10.2); Carbon Dioxide 20 mmol/L (22-30); Creatinine 1 0.51 mg/dL (0.52-1.04); EST GLOMERULAR FILTRATION RATE > 60.0 ML/MIN; Glucose 99 mg/dL (74-106); Potassium 3.5 mmol/L (3.5-5.1); SGOT/AST 27 U/L (14-36); SGPT/ALT 19 U/L (0-35); SODIUM 138 mmol/L (137-145); Total Protein 5.7 g/dL (6.3-8.2)
[2023-06-21 18:45] VITALS: BP 96/67; PULSE 80; RESP 25
[2023-06-21 19:21] VITALS: O2SAT 97
== END 2023-06-21 19:51 | disposition home or self-care (01) ==
LOC: ED 16:47
DX: K21.9 Gastro-esophageal reflux disease without esophagitis (principal); Z33.1 Pregnant state, incidental; Z79.899 Other long term (current) drug therapy; Z28.310 Unvaccinated for COVID-19; Z72.0 Tobacco use
CPT/HCPCS: 36000; 36415; 80053; 84484; 85025; 93005; 93041; 94760; 99284

== ENCOUNTER 2023-07-07 20:02 | Emergency (ER) | payer OTHER ==
[2023-07-07 20:30] VITALS: TEMP 97.3
--- NOTE | 2023-07-07 21:04 | ERPHSYRPT ---
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 nasal congestion with frequent sneezing, sore throat, and pain in her rt upper abd. pt states she was told by ob to come into er for a covid test and for liver function tests Triage Nursing Assessment: pt alert and oriented, answers questions approp. pt ambulates into room with steady gait noted. respirations nonlabored. skin warm and dry. no rash noted to skin. Physician History: 27 yo WF who is 35 wks presents w cough/nasal congestion/ST starting today. She had loose stool x1 today but denies N/V/D. Pt denies fever/dysuria/hematuria/vag bleeding/vag discharge. She has mild R inferior thoracic pain/RUQ pain. pt smokes <1ppd and smoked marijuana until 3 wks ago. Timing/Duration: today Cough Quality/Degree: dry cough Possible Cause: no prior episodes Associated Symptoms: denies symptoms Allergies/Adverse Reactions: No Known Drug Allergies Allergy (Verified 06/21/23 17:16) Home Medications: Levothyroxine Sodium [Levothyroxine] 225 mcg PO DAILY 08/25/22 [History] Sertraline HCl 50 mg [Zoloft 50 mg Tablet] 50 mg PO DAILY 07/07/23 [History] Hx Tetanus, Diphtheria Vaccination/Date Given: Yes Hx Influenza Vaccination/Date Given: No Hx Pneumococcal Vaccination/Date Given: No Immunizations Up to Date: Yes Travel Risk - International Travel Have you traveled outside of the country in past 3 weeks: No - Coronavirus Screening Are you exhibiting any of the following symptoms?: Yes Symptoms: Cough: New Onset, Headaches/Body Aches/Fatigue Close contact with a COVID-19 positive Pt in past 14-21 Days: No - Vaccine Status Have you recieved a Covid-19 vaccination: No - Review of Systems Constitutional: No Symptoms Eyes: No Symptoms Ears, Nose, & Throat: No Symptoms, Nose Congestion Respiratory: No Symptoms, Cough Cardiac: No Symptoms Abdominal/Gastrointestinal: No Symptoms Genitourinary Symptoms: No Symptoms Musculoskeletal: No Symptoms Skin: No Symptoms Neurological: No Symptoms Psychological: No Symptoms Endocrine: No Symptoms Hematologic/Lymphatic: No Symptoms Immunological/Allergic: No Symptoms - Past Medical History Pertinent Past Medical History: Yes Neurological History: Seizures ENT History: No Pertinent History Cardiac History: Other Respiratory History: No Pertinent History Endocrine Medical History: Other Musculoskeletal History: No Pertinent History GI Medical History: Gallbladder Disease History: No Pertinent History Psycho-Social History: No Pertinent History Female Reproductive Disorders: No Pertinent History Other Medical History: Graves disease , non epileptic seizures, heart murmer thyroid iradiation - Past Surgical History Past Surgical History: Yes Neuro Surgical History: No Pertinent History Cardiac: Other Respiratory: No Pertinent History Gastrointestinal: Cholecystectomy Genitourinary: No Pertinent History Musculoskeletal: No Pertinent History Female Surgical History: No Pertinent History Other Surgical History: states heart murmur surgery, gallstrone removal and then melisa - Social History Smoking Status: Current every day smoker How long have you smoked: 13 years Exposure to second hand smoke: Yes Drug Use: marijuana Patient Lives Alone: No Significant Family History: no pertinent family hx - Female History Hx Now: Yes Gestational Age: 35wks 5 da - Nursing Vital Signs Nursing Vital Signs: Initial Vital Signs Temperature 97.3 F 07/07/23 20:16 Pulse Rate 91 H 07/07/23 20:16 Respiratory Rate 18 07/07/23 20:16 Blood Pressure 126/79 07/07/23 20:16 O2 Sat by Pulse Oximetry 100 07/07/23 20:16 Pain Scale Pain Intensity 2 WNL - Physical Exam General Appearance: no apparent distress Eye Exam: PERRL/EOMI, eyes nml inspection Ears, Nose, Throat Exam: normal ENT inspection, TMs normal, pharynx normal, moist mucous membranes Neck Exam: normal inspection, non-tender, supple, full range of motion, No meningismus, No mass, No Brudzinski, No Kernig's, No carotid bruit Respiratory Exam: normal breath sounds, lungs clear, airway intact Cardiovascular Exam: regular rate/rhythm, normal heart sounds, normal peripheral pulses, capillary refill <2 sec, No murmur Gastrointestinal/Abdomen Exam: other (/NTTP) Back Exam: normal inspection, normal range of motion, No CVA tenderness Extremity Exam: normal inspection Neurologic Exam: alert, oriented x 3, cooperative, 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, normal mood/affect, nml cerebellar function, nml station & gait, sensation nml Skin Exam: normal color, warm, dry, No rash Lymphatic Exam: No adenopathy SpO2 Interpretation: normal SpO2: 100 O2 Delivery: Room Air - Course Nursing assessment & vital signs reviewed: Yes Ordered Tests: Active Orders 24 hr Category Date Time Status CULTURE,URINE Stat Lab 07/07/23 20:55 Received UA W/RFX UR CULTURE Stat Lab 07/07/23 20:55 Completed Medication Summary Discontinued Medications Generic Name Dose Route Start Last Admin Trade Name Stephan PRN Reason Stop Dose Admin Ceftriaxone Sodium 1,000 mg 07/07/23 21:57 07/07/23 22:06 Ceftriaxone Sodium 1000 Mg Inj Vial IM 07/07/23 21:58 1,000 mg STAT ONE Administration Ceftriaxone Sodium Confirm 07/07/23 22:04 Ceftriaxone Sodium 1000 Mg Inj Vial Administered 07/07/23 22:05 Dose 1,000 mg .ROUTE .STK-MED ONE Lab/Rad Data: Laboratory Results 07/07/23 07/07/23 07/07/23 Range/Units 20:55 20:55 20:55 Urine Color Dark Yellow A (Yellow) Urine Appearance Cloudy A (Clear) Urine pH 6.0 (4.6-8.0) Ur Specific [place] >=1.030 A (1.005-1.030) Urine Protein 30 (Negative) Urine Glucose (UA) Negative (Negative) mg/dL Urine Ketones Trace A (Negative) Urine Blood Negative (Negative) Urine Nitrite Negative (Negative) Urine Bilirubin Moderate A (Negative) Urine Urobilinogen 2.0 A (0.2) mg/dL Ur Leukocyte Esterase Small A (Negative) U Hyaline Cast (Auto) 0-2 (0-2) /LPF Urine Microscopic RBC 3-5 (0-5) /HPF Urine Microscopic WBC 21-50 A (0-5) /HPF Ur Epithelial Cells Moderate A (None Seen) /HPF Urine Bacteria Moderate A (None Seen) /HPF Urine Culture Reflexed YES (NO) Influenza Type A Ag NEGATIVE (NEGATIVE) Influenza Type B Ag NEGATIVE (NEGATIVE) RSV (PCR) NEGATIVE (NEGATIVE) SARS-CoV-2 (PCR) NEGATIVE (NEGATIVE) Group A Strep Antibody NOT DETECTED (NEGATIVE) - Progress Progress: improved Progress Note: 07/07/23 22:31 Nursing note and vital signs reviewed No food or housing insecurities noted Additional history per SO All lab results reviewed and shared w pt/SO 1gm IM Rocephin for UTI FHT 152 Pt most likely has a viral URI w neg Fluvid/strep/Serial auscultation exams clear Serial abdominal exams NTTP Pt wo vaginal bleeding/discharge/pelvic pain 07/07/23 22:33 Counseled pt/family regarding: lab results, diagnosis, need for follow-up Medical Desision Making - Independent Historian Additional History obtained from: Spouse - Diagnostic Testing Diagnostic test were ordered, analyzed, and reviewed by me: Yes - Risk of complications The pt has a mod risk of morbidity or mortality based on: Need for prescription drug management - Departure Departure Disposition: Home Clinical Impression: Viral URI, UTI (urinary tract infection) Condition: Stable Critical Care Time: No Referrals: JAYA CERON MD [Primary Care Provider] - Follow up/PCP as directed Instructions: Urinary Tract Infection, Adult (DC), Cough, Runny Nose, and the Common Cold (DC) Additional Instructions: Start Keflex tomorrow-1 tablet three times a day for 5 days Fluids Follow up with your Ob in 1-2 days Return to ER as needed Prescriptions: Cephalexin Mh 500 mg [Keflex 500 mg] 500 mg PO TID 5 Days #15 cap
[2023-07-07 21:27] LABS: Appearance Cloudy (Clear); Bacteria Moderate /HPF (None Seen); Bilirubin Moderate (Negative); Blood Negative (Negative); Epithelial Cells Moderate /HPF (None Seen); Glucose, Urine Negative (Negative); Hyaline Casts 0-2 /LPF (0-2); Ketones Trace (Negative); Leukocyte Esterase Small (Negative); Nitrite Negative (Negative); Protein,Urine Dip 30 (Negative); Specific Gravity >=1.030 (1.005-1.030); WBC 21-50 /HPF (0-5)
[2023-07-07 21:28] LABS: ADD URINE CULTURE? YES (NO)
[2023-07-07 21:39] LABS: INFLUENZA A NEGATIVE (NEGATIVE); INFLUENZA B NEGATIVE (NEGATIVE); RESPIRATORY SYNCTIAL VIRUS NEGATIVE (NEGATIVE); SARS-CoV-2 Xpert Express NEGATIVE (NEGATIVE)
[2023-07-07] MEDS ORDERED: Rocephin 1000 MG INJ IM ONE (21:57)
[2023-07-07] MEDS ORDERED: Rocephin 1000 MG INJ ONE (22:04)
[2023-07-07 22:24] VITALS: BP 108/72; PULSE 72; RESP 16
[2023-07-07 22:33] VITALS: O2SAT 100
== END 2023-07-07 22:28 | disposition home or self-care (01) ==
LOC: ED 20:02
DX: O99.513 Diseases of the respiratory system complicating pregnancy, third trimester (principal); J06.9 Acute upper respiratory infection, unspecified; O23.43 Unspecified infection of urinary tract in pregnancy, third trimester; N39.0 Urinary tract infection, site not specified; Z3A.35 35 weeks gestation of pregnancy; J02.9 Acute pharyngitis, unspecified; R05.1 Acute cough; R10.11 Right upper quadrant pain; Z79.899 Other long term (current) drug therapy; Z28.310 Unvaccinated for COVID-19; Z72.0 Tobacco use
CPT/HCPCS: 0241U; 81001; 87086; 87651; 96372; 99283; J0696

== ENCOUNTER 2023-07-18 03:19 | Inpatient (IN) | payer OTHER ==
[~2023-07-18 03:19] MED LIST: Nubain 10 MG/ML IV PRN
[2023-07-18] MEDS ORDERED: Zofran 4 MG/2 ML VIAL IV PRN (16:00)
[2023-07-18] MEDS ORDERED: TYLENOL EXTRA STRENGTH 500 MG PO PRN (16:00)
[2023-07-18 16:54] LABS: BASOPHIL % 0.3 % (0.0-0.4); Basophil (Absolute #) 0.03 x10^3/uL (0-0.4); Eosinophil % 1.7 % (0.00-5.0); Eosinophil (Absolute #) 0.18 x10^3/uL (0-0.5); Hematocrit 30.4 % (35-47); Hemoglobin 9.5 g/dL (12.0-16.0); IMMATURE GRAN # 0.07 x10^3u/L (0.00-0.03); IMMATURE GRAN % 0.7 % (0.00-0.4); Lymphocyte (Absolute #) 1.92 x10^3/uL (1.0-4.6); Lymphocytes % 18.1 % (24.0-44.0); Mean Cell Volume 86.4 fL (78-100); Mean Corpuscular Hgb Concent. 31.3 g/dL (32-36); Mean Platelet Volume 10.2 fL (7.5-11.0); Monocyte (Absolute #) 0.62 x10^3/uL (0.0-1.3); Monocytes % 5.8 % (0.0-12.0); Neutrophil % 73.4 % (36.0-66.0); Platelet Count 398 x10^3/uL (150-450); Red Blood Count 3.52 x10^6/uL (4.1-5.4); White Blood Count 10.6 x10^3/uL (4.0-10.5)
[2023-07-18] MEDS: CYTOTEC PO SCH ×4 (17:00→22:53)
[2023-07-18 17:29] LABS: Appearance Clear (Clear); Bacteria None Seen /HPF (None Seen); Bilirubin Negative (Negative); Blood Negative (Negative); Epithelial Cells Rare /HPF (None Seen); Glucose, Urine Negative (Negative); Hyaline Casts NONE SEEN /LPF (0-2); Ketones Negative (Negative); Leukocyte Esterase Negative (Negative); Nitrite Negative (Negative); Protein,Urine Dip Trace (Negative); RBC 0-2 /HPF (0-5); WBC 0-2 /HPF (0-5)
[2023-07-18 17:30] LABS: Amphetamine,Urine NEGATIVE (NEGATIVE); Barbiturate,Urine NEGATIVE (NEGATIVE); Benzodiazepine,Urine NEGATIVE (NEGATIVE); Cocaine,Urine NEGATIVE (NEGATIVE); Methadone,Urine NEGATIVE (NEGATIVE); Opiate,Urine NEGATIVE (NEGATIVE); PCP,Urine NEGATIVE (NEGATIVE); THC,Urine POSITIVE (NEGATIVE)
[2023-07-18 17:38] LABS: ADD URINE CULTURE? NO (NO)
[2023-07-18 18:14] LABS: ABO TYPING A; RH TYPING NEGATIVE
[2023-07-18 18:16] LABS: Antibody Screen POSITIVE (NEGATIVE)
[2023-07-19] MEDS ORDERED: Lactated Ringers 1,000 ML IV ONE ×4 (00:51→06:00)
[2023-07-19] MEDS: Lactated Ringers 1,000 ML IV SCH ×2 (00:54→02:57)
[2023-07-19] MEDS: CYTOTEC PO SCH (01:58)
[2023-07-19] MEDS ORDERED: Nubain 10 MG/ML ONE (02:13)
[2023-07-19] MEDS ORDERED: FENTANYL 2 MCG-BUPIV 0.125%-NS 250 ML Epidur 250 ML EPIDURAL ONE (03:14)
[2023-07-19] MEDS ORDERED: PITOCIN 30 UNITS/ LR 500 ML 500 ML IV ONE (03:15)
[2023-07-19] MEDS ORDERED: CORTISONE 1% CREAM TP PRN (04:18)
[2023-07-19] MEDS ORDERED: NORCO 5/325 MG PO PRN (04:18)
[2023-07-19] MEDS ORDERED: Mylicon 80MG PO PRN (04:18)
[2023-07-19] MEDS ORDERED: Dulcolax 10 MG SUPP PR PRN (04:18)
[2023-07-19] MEDS ORDERED: MOTRIN 400 MG PO PRN (04:18)
[2023-07-19] MEDS ORDERED: Dermoplast Spray TP PRN (04:18)
[2023-07-19] MEDS ORDERED: Anucort-HC SUPPOSITORY PR PRN (04:18)
[2023-07-19] MEDS ORDERED: Adacel Vial IM ONE (04:18)
[2023-07-19] MEDS ORDERED: Restoril 15 MG PO PRN (04:18)
[2023-07-19] MEDS ORDERED: TUCKS TP PRN (04:18)
[2023-07-19] MEDS ORDERED: Ambien 10 MG PO PRN (04:18)
[2023-07-19] MEDS ORDERED: TYLENOL EXTRA STRENGTH 500 MG PO PRN (04:18)
[2023-07-19] MEDS ORDERED: LANSINOH 40 GM TOP PRN (04:18)
[2023-07-19] MEDS ORDERED: Ephedrine Sulfate 50 MG/ML IV PRN (06:00)
[2023-07-19] MEDS ORDERED: FENTANYL 2 MCG-BUPIV 0.125%-NS 250 ML Epidur 250 ML EPIDURAL SCH (06:00)
[2023-07-19] MEDS ORDERED: XYLOCAINE 1% HCL 20 ML MDV IJ PRN (06:00)
[2023-07-19] MEDS ORDERED: PITOCIN 30 UNITS/ LR 500 ML 30 UNITS/500 ML PLAST..BAG IV SCH ×2 (07:00→10:00)
[2023-07-19] MEDS: FERREX 150 PO SCH (09:01)
[2023-07-19] MEDS: Docusate Sodium 100 MG PO SCH ×2 (09:01→22:11)
[2023-07-19] MEDS ORDERED: NON-FORMULARY ITEM (Budesonide/Formoterol Fumarate [Budesonide-Formoterol 160-4.5] 10.2 GM IH PRN (10:14)
[2023-07-19] MEDS: SYNTHROID 100 MCG PO SCH (10:29)
[2023-07-19] MEDS: ZOLOFT 50 MG TABLET PO SCH (10:29)
[2023-07-19] MEDS: SYNTHROID 125 MCG PO SCH (10:29)
[2023-07-19] MEDS ORDERED: MEDICATION INTERVENTION MC SCH (10:30)
[2023-07-19 16:26] LABS: BASOPHIL % 0.2 % (0.0-0.4); Basophil (Absolute #) 0.02 x10^3/uL (0-0.4); Eosinophil % 1.3 % (0.00-5.0); Eosinophil (Absolute #) 0.17 x10^3/uL (0-0.5); Hematocrit 29.9 % (35-47); Hemoglobin 9.4 g/dL (12.0-16.0); IMMATURE GRAN # 0.05 x10^3u/L (0.00-0.03); IMMATURE GRAN % 0.4 % (0.00-0.4); Lymphocyte (Absolute #) 1.95 x10^3/uL (1.0-4.6); Lymphocytes % 15.3 % (24.0-44.0); Mean Cell Volume 85.9 fL (78-100); Mean Corpuscular Hgb Concent. 31.4 g/dL (32-36); Mean Platelet Volume 10.4 fL (7.5-11.0); Monocyte (Absolute #) 0.74 x10^3/uL (0.0-1.3); Monocytes % 5.8 % (0.0-12.0); Platelet Count 363 x10^3/uL (150-450); Red Blood Count 3.48 x10^6/uL (4.1-5.4); Red Cell Distribution Width 14.1 % (11.5-14.0); White Blood Count 12.7 x10^3/uL (4.0-10.5)
[2023-07-19] MEDS ORDERED: PATIENT OWN MEDICATION IH PRN (17:07)
[2023-07-19] MEDS: PATIENT OWN MEDICATION IH SCH (17:33)
[2023-07-20] MEDS: PATIENT OWN MEDICATION IH SCH (07:21)
--- NOTE | 2023-07-20 08:12 | PCM.NOTE ---
Date and Time: 07/20/23 0811 Subjective Assessment: ppd 1 sp pt resting in bed and doing well able to ambulate and tolerate diet vss afebrile abd; soft uterus; firm lochia; mild hgb; 9.2 a/p sp ppd 1 dc home tomorrow fu office 3 wks OBJECTIVE DATA Vital Signs: Vital Signs - 24 hr Temp Pulse Resp BP Pulse Ox 07/20/23 07:23 70 16 97 07/20/23 02:30 97.8 F 76 20 106/70 100 07/19/23 20:00 98.0 F 79 18 111/75 97 07/19/23 17:34 82 18 98 07/19/23 14:00 99.1 F 84 18 106/70 98 Pain Assessment - Last Documented Pain Intensity [Lower Anterior 2 ] Pain Intensity 4 Pain Scale Used 0-10 Pain Scale Intake and Output: Intake & Output 07/17/23 07/18/23 07/19/23 07/20/23 11:59 11:59 11:59 11:59 Intake Total 4400 1850 Balance 4400 1850 Weight 78.471 kg 78.471 kg Lab Results: Lab Results-Last 24 Hours 07/19/23 Range/Units 16:22 WBC 12.7 H (4.0-10.5) x10^3/uL RBC 3.48 L (4.1-5.4) x10^6/uL Hgb 9.4 L (12.0-16.0) g/dL Hct 29.9 L (35-47) % MCV 85.9 (78-100) fL MCH 27.0 (26-32) pg MCHC 31.4 L (32-36) g/dL RDW 14.1 H (11.5-14.0) % Plt Count 363 (150-450) x10^3/uL MPV 10.4 (7.5-11.0) fL Gran % 77.0 H (36.0-66.0) % Immature Gran % (Auto) 0.4 (0.00-0.4) % Nucleat RBC Rel Count 0.0 (0.00-0.1) % Eos # (Auto) 0.17 (0-0.5) x10^3/uL Immature Gran # (Auto) 0.05 H (0.00-0.03) x10^3u/L Absolute Lymphs (auto) 1.95 (1.0-4.6) x10^3/uL Absolute Monos (auto) 0.74 (0.0-1.3) x10^3/uL Absolute Nucleated RBC 0.00 (0.00-0.01) x10^3u/L Lymphocytes % 15.3 L (24.0-44.0) % Monocytes % 5.8 (0.0-12.0) % Eosinophils % 1.3 (0.00-5.0) % Basophils % 0.2 (0.0-0.4) % Absolute Granulocytes 9.80 H (1.4-6.9) x10^3/uL Basophils # 0.02 (0-0.4) x10^3/uL Multi-Disciplinary Progress Notes: Multi-Disciplinary Progress Notes 07/19/23 11:24 Respiratory Note by Audrey Weiss PT STATES SHE WILL HAVE A FAMILY MEMBER BRING IN HER MDI FROM HOME SINCE WE DO NOT STOCK IT Initialized on 07/19/23 11:24 - END OF NOTE Assessment/Plan (1) Intrahepatic cholestasis of Current Visit: Yes Status: Acute Code(s): O26.649 - (2) Vaginal delivery Current Visit: Yes Status: Acute Code(s): O80 - ENCOUNTER FOR FULL-TERM UNCOMPLICATED DELIVERY (3) Bronchitis Current Visit: No Status: Acute Code(s): J40 - BRONCHITIS, NOT SPECIFIED ACUTE OR CHRONIC
--- NOTE | 2023-07-20 08:16 | PCM.DS ---
Discharge Summary Date of Admission: 07/19/23 03:19 Admitting Physician: TRINY PEPPER DO Consults: Consults on Case 07/19/23 04:21 Notify Physician ROUTINE 07/19/23 15:22 Navigation ONCE Primary Care Provider: JAYA CERON Allergies Allergies No Known Drug Allergies Allergy (Verified 06/21/23 17:16) Hospital Summary - Hospital Course Hospital Course: pt admitted on jul 18 at 37 wks gestation for induction with oral cytotec secondary to having intrahepatic cholestasis of and was advised to de liver at this time by mfm. pt was started on cytoted and delivered precipitously on jul 19 in the am. during period did well able to ambulate and tolerate diet. pt with stable hgb at 9.2 and is stable for discharge on jul 21 with fu in office in 3 wks. all questions answered to her satisfaction. - Vitals & Intake/Output Vital Signs: Vital Signs Temperature 97.8 F 07/20/23 02:30 Pulse Rate 70 07/20/23 07:23 Respiratory Rate 16 07/20/23 07:23 Blood Pressure 106/70 07/20/23 02:30 O2 Sat by Pulse Oximetry 97 07/20/23 07:23 Intake & Output: Intake & Output 07/17/23 07/18/23 07/19/23 07/20/23 11:59 11:59 11:59 11:59 Intake Total 4400 1850 Balance 4400 1850 Weight 78.471 kg 78.471 kg - Lab Result Diagrams: 07/19/23 16:22 Lab Results-Last 24 Hrs: Lab Results-Last 24 Hours 07/19/23 Range/Units 16:22 WBC 12.7 H (4.0-10.5) x10^3/uL RBC 3.48 L (4.1-5.4) x10^6/uL Hgb 9.4 L (12.0-16.0) g/dL Hct 29.9 L (35-47) % MCV 85.9 (78-100) fL MCH 27.0 (26-32) pg MCHC 31.4 L (32-36) g/dL RDW 14.1 H (11.5-14.0) % Plt Count 363 (150-450) x10^3/uL MPV 10.4 (7.5-11.0) fL Gran % 77.0 H (36.0-66.0) % Immature Gran % (Auto) 0.4 (0.00-0.4) % Nucleat RBC Rel Count 0.0 (0.00-0.1) % Eos # (Auto) 0.17 (0-0.5) x10^3/uL Immature Gran # (Auto) 0.05 H (0.00-0.03) x10^3u/L Absolute Lymphs (auto) 1.95 (1.0-4.6) x10^3/uL Absolute Monos (auto) 0.74 (0.0-1.3) x10^3/uL Absolute Nucleated RBC 0.00 (0.00-0.01) x10^3u/L Lymphocytes % 15.3 L (24.0-44.0) % Monocytes % 5.8 (0.0-12.0) % Eosinophils % 1.3 (0.00-5.0) % Basophils % 0.2 (0.0-0.4) % Absolute Granulocytes 9.80 H (1.4-6.9) x10^3/uL Basophils # 0.02 (0-0.4) x10^3/uL - Procedures and Test Procedures and Tests throughout Hospitalization: Therapy Orders & Screens 07/18/23 17:52 Smoking Cessation Education ONCE Comment: Diagnosis: Induction of labor Smoking Status: Current every day smoker How long have you smoked: 13 years Have you smoked in the past 12 months: Yes Approximately how many cigarettes per day: 4-5 cigarettes per day Do you dip or chew tobacco: No 07/18/23 19:12 Smoking Cessation Education ONCE Comment: Diagnosis: Induction of labor Smoking Status: Current every day smoker How long have you smoked: 13 years Have you smoked in the past 12 months: Yes Approximately how many cigarettes per day: 4-5 cigarettes per day Do you dip or chew tobacco: No 07/19/23 17:18 Respiratory Therapy Assessment DAILY Comment: Diagnosis: Induction of labor 07/19/23 19:00 Respiratory MDI BID Comment: Diagnosis: Induction of labor Final Diagnosis/Problem List - Final Discharge Diagnosis/Problem (1) Intrahepatic cholestasis of Current Visit: Yes Status: Acute Code(s): O26.649 - (2) Vaginal delivery Current Visit: Yes Status: Acute Code(s): O80 - ENCOUNTER FOR FULL-TERM UNCOMPLICATED DELIVERY (3) Bronchitis Current Visit: No Status: Acute Code(s): J40 - BRONCHITIS, NOT SPECIFIED ACUTE OR CHRONIC - Discharge Disposition: Home, Self-Care Condition: Stable Prescriptions: No Action Levothyroxine Sodium [Levothyroxine] 225 mcg PO DAILY Omeprazole 20 mg PO DAILY 14 Days #14 cap Sertraline HCl 50 mg [Zoloft 50 mg Tablet] 50 mg PO DAILY Cephalexin Mh 500 mg [Keflex 500 mg] 500 mg PO TID 5 Days #15 cap Azithromycin [Azithromycin 250 mg Pack] 250 mg PO UD #6 tablet Budesonide/Formoterol Fumarate [Budesonide-Formoterol 160-4.5] 2 puff IH BID PRN 30 Days #1 inhaler NS PRN Reason: Shortness Of Breath/Wheezing Follow up with: JAYA CERON MD [Primary Care Provider] - TRINY PEPPER DO [ACTIVE STAFF] - 3 weeks
[2023-07-20] MEDS: ZOLOFT 50 MG TABLET PO SCH (08:59)
[2023-07-20] MEDS: SYNTHROID 125 MCG PO SCH (08:59)
[2023-07-20] MEDS: SYNTHROID 100 MCG PO SCH (08:59)
[2023-07-20] MEDS: Docusate Sodium 100 MG PO SCH (09:00)
[2023-07-20] MEDS: FERREX 150 PO SCH (09:00)
[2023-07-20 15:00] VITALS: RESP 20; O2SAT 98
[2023-07-20 15:39] VITALS: BP 110/61; PULSE 96; TEMP 98.1
== END 2023-07-20 19:23 | disposition home or self-care (01) | DRG 807 ==
LOC: OB 03:19 → OBSVTOIN 07-19 03:19
PROVIDERS: ADMIT Obstetrics & Gynecology; ATTEND Obstetrics & Gynecology
PROC: 10E0XZZ Delivery of Products of Conception, External Approach (ICD-10-PCS; principal; 2023-07-19)
DX: O26.62 Liver and biliary tract disorders in childbirth (principal); Z37.0 Single live birth; Z3A.37 37 weeks gestation of pregnancy; Z20.828 Contact with and (suspected) exposure to other viral communicable diseases; J40 Bronchitis, not specified as acute or chronic
CPT/HCPCS: 36415; 80307; 81001; 85025; 86850; 86870; 86900; 86901; 90471; 90715; 94640; 94760; G0378; G0379; J2300; J2590; A9270-GY

== ENCOUNTER 2023-11-08 11:27 | Emergency (ER) | payer OTHER ==
[2023-11-08 11:45] VITALS: PULSE 70; RESP 16; TEMP 98.9
[2023-11-08] MEDS ORDERED: Sodium Chloride 0.9% 1000 ML 1,000 ML IV STA (12:15)
[2023-11-08 12:21] LABS: Absolute Neutrophil Ct (ANC) 4.78 x10^3/uL (1.4-6.9); BASOPHIL % 0.6 % (0.0-0.4); Basophil (Absolute #) 0.05 x10^3/uL (0-0.4); Eosinophil % 4.5 % (0.00-5.0); Eosinophil (Absolute #) 0.36 x10^3/uL (0-0.5); Hemoglobin 12.9 g/dL (12.0-16.0); IMMATURE GRAN # 0.02 x10^3u/L (0.00-0.03); IMMATURE GRAN % 0.3 % (0.00-0.4); Lymphocyte (Absolute #) 2.27 x10^3/uL (1.0-4.6); Lymphocytes % 28.5 % (24.0-44.0); Mean Corpuscular Hgb Concent. 31.5 g/dL (32-36); Mean Platelet Volume 9.5 fL (7.5-11.0); Monocyte (Absolute #) 0.49 x10^3/uL (0.0-1.3); Monocytes % 6.1 % (0.0-12.0); Platelet Count 388 x10^3/uL (150-450); Red Blood Count 4.77 x10^6/uL (4.1-5.4); Red Cell Distribution Width 16.7 % (11.5-14.0)
[2023-11-08 12:28] LABS: HCG SERUM TEST POSITIVE (NEGATIVE)
[2023-11-08 12:29] LABS: ANION GAP 15.2 MEQ/L (5-15); BILIRUBIN,TOTAL 0.8 mg/dL (0.2-1.3); Calcium 9.6 mg/dL (8.4-10.2); Creatinine 1 0.71 mg/dL (0.52-1.04); EST GLOMERULAR FILTRATION RATE 120.9 ML/MIN; Potassium 4.3 mmol/L (3.5-5.1); Total Protein 8.3 g/dL (6.3-8.2)
[2023-11-08] MEDS ORDERED: Sodium Chloride 0.9% 1000 ML 1,000 ML ONE (12:30)
[2023-11-08 12:31] LABS: Appearance Cloudy (Clear); Bacteria Few /HPF (None Seen); Bilirubin Negative (Negative); Blood Negative (Negative); Epithelial Cells Few /HPF (None Seen); Glucose, Urine Negative (Negative); Hyaline Casts NONE SEEN /LPF (0-2); Ketones 15 (Negative); Leukocyte Esterase Trace (Negative); Nitrite Negative (Negative); Ph 5.5 (4.6-8.0); Protein,Urine Dip Negative (Negative); RBC 0-2 /HPF (0-5); Specific Gravity 1.025 (1.005-1.030); Urobilinogen 0.2 mg/dL (0.2)
[2023-11-08 12:33] LABS: ADD URINE CULTURE? NO (NO)
--- NOTE | 2023-11-08 12:36 | ERPHSYRPT ---
- History of Present Illness Time Seen by Provider: 11/08/23 11:45 Source: patient Exam Limitations: no limitations Patient Subjective Stated Complaint: abdominal pain, n/v/d Triage Nursing Assessment: patient reports having diarrhea x1 week. nausea and vomiting started today. reports having positive home test on 10/22. unsure of how far along she is her appointment is tomorrow. Physician History: 27-year-old female M1 currently advises that she was told that she was last week presents to our ED for nausea vomiting and diarrhea. Patient experiences some abdominal discomfort when she vomits however no abdominal pain at this time. Symptoms are intermittent. Symptoms are mild to moderate in intensity. No specific worsening or improving factors. No fever. No trauma. Family friend at bedside. Patient voices no other complaints or concerns at this time. Portions of this note were created with voice recognition technology. There may be grammatical, spelling, punctuation or sound alike errors Timing/Duration: day(s) (2 days) Severity: moderate Modifying Factors: Improves With: nothing Associated Symptoms: denies symptoms Allergies/Adverse Reactions: No Known Drug Allergies Allergy (Verified 11/08/23 11:45) Home Medications: Levothyroxine Sodium [Levothyroxine] 225 mcg PO DAILY 08/25/22 [History] Sertraline HCl 50 mg [Zoloft 50 mg Tablet] 50 mg PO DAILY 07/07/23 [History] Hx Tetanus, Diphtheria Vaccination/Date Given: Yes Hx Influenza Vaccination/Date Given: No Hx Pneumococcal Vaccination/Date Given: No Travel Risk - International Travel Have you traveled outside of the country in past 3 weeks: No - Coronavirus Screening Are you exhibiting any of the following symptoms?: Yes Symptoms: Vomiting/Diarrhea Close contact with a COVID-19 positive Pt in past 14-21 Days: No - Vaccine Status Have you recieved a Covid-19 vaccination: No - Review of Systems Constitutional: No Symptoms, No Fever, No Chills Eyes: No Symptoms Ears, Nose, & Throat: No Symptoms Respiratory: No Symptoms, No Cough, No Dyspnea Cardiac: No Symptoms, No Chest Pain, No Edema, No Syncope Abdominal/Gastrointestinal: No Symptoms, No Abdominal Pain, No Nausea, No Vomiting, No Diarrhea Genitourinary Symptoms: No Symptoms, No Dysuria Musculoskeletal: No Symptoms, No Back Pain, No Neck Pain Skin: No Symptoms, No Rash Neurological: No Symptoms, No Dizziness, No Focal Weakness, No Sensory Changes Psychological: No Symptoms Endocrine: No Symptoms Hematologic/Lymphatic: No Symptoms Immunological/Allergic: No Symptoms All Other Systems: Reviewed and Negative - Past Medical History Pertinent Past Medical History: Yes Neurological History: Other ENT History: Other Cardiac History: Other Respiratory History: Bronchitis Endocrine Medical History: Hyperthyroidism, Hypothyroidism Musculoskeletal History: No Pertinent History GI Medical History: Gallbladder Disease History: No Pertinent History Psycho-Social History: Depression Female Reproductive Disorders: No Pertinent History Other Medical History: Graves disease , non epileptic seizures, heart murmer thyroid iradiation - Past Surgical History Past Surgical History: Yes Neuro Surgical History: No Pertinent History Cardiac: Cardiac Stent Respiratory: No Pertinent History Gastrointestinal: Cholecystectomy Genitourinary: No Pertinent History Musculoskeletal: No Pertinent History Female Surgical History: No Pertinent History Other Surgical History: states heart murmur surgery, gallstrone removal and then melisa - Social History Smoking Status: Current every day smoker How long have you smoked: 15 years Exposure to second hand smoke: Yes Drug Use: marijuana Patient Lives Alone: Yes Significant Family History: no pertinent family hx - Female History Hx Now: Yes Gestational Age: unknown - Nursing Vital Signs Nursing Vital Signs: Initial Vital Signs Temperature 98.9 F 11/08/23 11:35 Pulse Rate 70 11/08/23 11:35 Respiratory Rate 16 11/08/23 11:35 Blood Pressure 119/74 11/08/23 11:35 O2 Sat by Pulse Oximetry 97 11/08/23 11:35 Pain Scale Pain Intensity 0 - Physical Exam General Appearance: no apparent distress, alert Eye Exam: PERRL/EOMI, eyes nml inspection Ears, Nose, Throat Exam: normal ENT inspection, TMs normal, pharynx normal, moist mucous membranes Neck Exam: normal inspection, non-tender, supple, full range of motion Respiratory Exam: normal breath sounds, lungs clear, airway intact, No respiratory distress Cardiovascular Exam: regular rate/rhythm, normal heart sounds, normal peripheral pulses Gastrointestinal/Abdomen Exam: soft, normal bowel sounds, No tenderness, No mass Back Exam: normal inspection, normal range of motion, No CVA tenderness, No dorothy tebral tenderness Extremity Exam: normal inspection, normal range of motion, pelvis stable Neurologic Exam: alert, oriented x 3, cooperative, normal mood/affect, nml cerebellar function, nml station & gait, sensation nml, No motor deficits Skin Exam: normal color, warm, dry, No rash Lymphatic Exam: No adenopathy SpO2 Interpretation: normal SpO2: 97 O2 Delivery: Room Air - Course Nursing assessment & vital signs reviewed: Yes Ordered Tests: Active Orders 24 hr Category Date Time Status IV Insertion STAT Care 11/08/23 12:15 Active CBC W DIFF Stat Lab 11/08/23 12:18 Completed CMP Stat Lab 11/08/23 12:18 Completed HCG QUALITATIVE, SERUM Stat Lab 11/08/23 12:18 Completed TROPONIN Q4H Lab 11/08/23 12:18 Completed TROPONIN Q4H Lab 11/08/23 16:30 Ordered TROPONIN Q4H Lab 11/08/23 20:30 Ordered UA W/RFX UR CULTURE Stat Lab 11/08/23 12:18 Completed Medication Summary Discontinued Medications Generic Name Dose Route Start Last Admin Trade Name Freq PRN Reason Stop Dose Admin Sodium Chloride 1,000 mls @ 999 mls/hr 11/08/23 12:15 11/08/23 12:31 Sodium Chloride 0.9% 1000 Ml IV 11/08/23 13:15 999 mls/hr .Q1H1M STA Administration Sodium Chloride Confirm 11/08/23 12:30 Sodium Chloride 0.9% 1000 Ml Administered 11/08/23 12:31 Dose 1,000 mls @ ud .ROUTE .STK-MED ONE Nitrofurantoin Macrocrystals 100 mg 11/08/23 13:34 Nitrofurantoin Macro 100 Mg Capsule PO 11/08/23 13:35 STAT ONE Lab/Rad Data: Laboratory Result Diagrams 11/08/23 12:18 11/08/23 12:18 Laboratory Results 11/08/23 11/08/23 11/08/23 Range/Units 12:18 12:18 12:18 WBC (4.0-10.5) x10^3/uL RBC (4.1-5.4) x10^6/uL Hgb (12.0-16.0) g/dL Hct (35-47) % MCV (78-100) fL MCH (26-32) pg MCHC (32-36) g/dL RDW (11.5-14.0) % Plt Count (150-450) x10^3/uL MPV (7.5-11.0) fL Gran % (36.0-66.0) % Immature Gran % (Auto) (0.00-0.4) % Nucleat RBC Rel Count (0.00-0.1) % Eos # (Auto) (0-0.5) x10^3/uL Immature Gran # (Auto) (0.00-0.03) x10^3u/L Absolute Lymphs (auto) (1.0-4.6) x10^3/uL Absolute Monos (auto) (0.0-1.3) x10^3/uL Absolute Nucleated RBC (0.00-0.01) x10^3u/L Lymphocytes % (24.0-44.0) % Monocytes % (0.0-12.0) % Eosinophils % (0.00-5.0) % Basophils % (0.0-0.4) % Absolute Granulocytes (1.4-6.9) x10^3/uL Basophils # (0-0.4) x10^3/uL Sodium (137-145) mmol/L Potassium (3.5-5.1) mmol/L Chloride (98-107) mmol/L Carbon Dioxide (22-30) mmol/L Anion Gap (5-15) MEQ/L BUN (7-17) mg/dL Creatinine (0.52-1.04) mg/dL Estimated GFR ML/MIN Glucose (74-106) mg/dL Calcium (8.4-10.2) mg/dL Total Bilirubin (0.2-1.3) mg/dL AST (14-36) U/L ALT (0-35) U/L Alkaline Phosphatase (38-126) U/L Troponin I < 0.012 (0.000-0.034) ng/mL Serum Total Protein (6.3-8.2) g/dL Albumin (3.5-5.0) g/dL Serum HCG, Qual POSITIVE (NEGATIVE) Urine Color Yellow (Yellow) Urine Appearance Cloudy A (Clear) Urine pH 5.5 (4.6-8.0) Ur Specific [place] 1.025 (1.005-1.030) Urine Protein Negative (Negative) Urine Glucose (UA) Negative (Negative) mg/dL Urine Ketones 15 A (Negative) Urine Blood Negative (Negative) Urine Nitrite Negative (Negative) Urine Bilirubin Negative (Negative) Urine Urobilinogen 0.2 (0.2) mg/dL Ur Leukocyte Esterase Trace A (Negative) U Hyaline Cast (Auto) NONE SEEN (0-2) /LPF Urine Microscopic RBC 0-2 (0-5) /HPF Urine Microscopic WBC 6-10 A (0-5) /HPF Ur Epithelial Cells Few (None Seen) /HPF Urine Bacteria Few A (None Seen) /HPF Urine Culture Reflexed NO (NO) 11/08/23 11/08/23 Range/Units 12:18 12:18 WBC 8.0 (4.0-10.5) x10^3/uL RBC 4.77 (4.1-5.4) x10^6/uL Hgb 12.9 (12.0-16.0) g/dL Hct 41.0 (35-47) % MCV 86.0 (78-100) fL MCH 27.0 (26-32) pg MCHC 31.5 L (32-36) g/dL RDW 16.7 H (11.5-14.0) % Plt Count 388 (150-450) x10^3/uL MPV 9.5 (7.5-11.0) fL Gran % 60.0 (36.0-66.0) % Immature Gran % (Auto) 0.3 (0.00-0.4) % Nucleat RBC Rel Count 0.0 (0.00-0.1) % Eos # (Auto) 0.36 (0-0.5) x10^3/uL Immature Gran # (Auto) 0.02 (0.00-0.03) x10^3u/L Absolute Lymphs (auto) 2.27 (1.0-4.6) x10^3/uL Absolute Monos (auto) 0.49 (0.0-1.3) x10^3/uL Absolute Nucleated RBC 0.00 (0.00-0.01) x10^3u/L Lymphocytes % 28.5 (24.0-44.0) % Monocytes % 6.1 (0.0-12.0) % Eosinophils % 4.5 (0.00-5.0) % Basophils % 0.6 (0.0-0.4) % Absolute Granulocytes 4.78 (1.4-6.9) x10^3/uL Basophils # 0.05 (0-0.4) x10^3/uL Sodium 137 (137-145) mmol/L Potassium 4.3 (3.5-5.1) mmol/L Chloride 105 (98-107) mmol/L Carbon Dioxide 21 L (22-30) mmol/L Anion Gap 15.2 H (5-15) MEQ/L BUN 14 (7-17) mg/dL Creatinine 0.71 (0.52-1.04) mg/dL Estimated GFR 120.9 ML/MIN Glucose 93 (74-106) mg/dL Calcium 9.6 (8.4-10.2) mg/dL Total Bilirubin 0.80 (0.2-1.3) mg/dL AST 28 (14-36) U/L ALT 35 (0-35) U/L Alkaline Phosphatase 95 (38-126) U/L Troponin I (0.000-0.034) ng/mL Serum Total Protein 8.3 H (6.3-8.2) g/dL Albumin 5.0 (3.5-5.0) g/dL Serum HCG, Qual (NEGATIVE) Urine Color (Yellow) Urine Appearance (Clear) Urine pH (4.6-8.0) Ur Specific [place] (1.005-1.030) Urine Protein (Negative) Urine Glucose (UA) (Negative) mg/dL Urine Ketones (Negative) Urine Blood (Negative) Urine Nitrite (Negative) Urine Bilirubin (Negative) Urine Urobilinogen (0.2) mg/dL Ur Leukocyte Esterase (Negative) U Hyaline Cast (Auto) (0-2) /LPF Urine Microscopic RBC (0-5) /HPF Urine Microscopic WBC (0-5) /HPF Ur Epithelial Cells (None Seen) /HPF Urine Bacteria (None Seen) /HPF Urine Culture Reflexed (NO) - Progress Progress: improved Progress Note: 27-year-old female presents to our ED for evaluation of nausea vomiting and diarrhea. Physical exam essentially nonremarkable. Workup reveals a urinary tract infection. confirmed via serum hCG. Patient received an oral dose of Macrobid in our ED. A prescription for Macrobid forwarded to patient's pharmacy. In light of patient's intermittent nausea and vomiting a prescription for Zofran also forwarded to patient's pharmacy. Patient has a follow-up appointment scheduled with her primary care doctor this week. Patient has no abdominal pain or pelvic pain no vaginal discharge. Vital stable. Will discha rge home. Patient agrees to follow-up with her primary care doctor within 48 hours for reevaluation. Portions of this note were created with voice recognition technology. There may be grammatical, spelling, punctuation or sound alike errors Complexity of problem addressed is moderate acute complicated No critical care time Complexity of data reviewed and analyzed is moderate. Test ordered test reviewed. Results analyzed and correlated clinically with history and physical exam. Risk of complication and or risk of morbidity/mortality of patient management is moderate. A prescription for Macrobid and Zofran forwarded to patient's pharmacy. Vital stable. Time spent to discharge patient is approximately 15 minutes. Plan of care established for shared decision making. No social determinants of health present impede follow-up. Portions of this note were created with voice recognition technology. There may be grammatical, spelling, punctuation or sound alike errors 11/08/23 13:38 Counseled pt/family regarding: lab results, diagnosis, need for follow-up - Departure Departure Disposition: Home Clinical Impression: , Nausea & vomiting, UTI (urinary tract infection) Condition: Stable Critical Care Time: No Referrals: GERMANIA ROTHMAN DO [Primary Care Provider] - Follow up/PCP as directed Additional Instructions: Discharge/Care Plan SANDRATESFAYE TRIVEDI was seen on 11/08/23 in the Emergency Room. The patient was counseled regarding Diagnosis,Lab results, Imaging studies, need for follow up and when to return to the Emergency Room. Prescriptions given: Discharge Note I have spoken with the patient and/or caregivers. I have explained the patient's condition, diagnosis and treatment plan based on the information available to me at this time. I have answered the patient's and/or caregiver's questions and addressed any concerns. The patient and/or caregivers have as good understanding of the patient's diagnosis, condition and treatment plan as can be expected at this point. The vital signs have been stable. The patient's condition is stable and appropriate for discharge from the emergency department. The patient will pursue further outpatient evaluation with the primary care physician or other designated or consulting physician as outlined in the discharge instructions. The patient and/or caregivers are agreeable to this plan of care and follow-up instructions have been explained in detail. The patient and/or caregivers have received these instruction. The patient/and or caregivers are aware that any significant change in condition or worsening of symptoms should prompt an immediate return to this or the closest emergency department or call 911. Prescriptions: Ondansetron ODT 4 MG [Zofran Odt 4 mg] 4 mg PO Q6H PRN PRN #10 tablet PRN Reason: Vomiting Nitrofurantoin Macro 100 mg [Macrobid 100MG Capsule] 100 mg PO BID 7 Days #14 cap
[2023-11-08 13:02] VITALS: BP 113/63
[2023-11-08] MEDS ORDERED: Macrobid 100MG Capsule PO ONE (13:34)
[2023-11-08 13:39] VITALS: O2SAT 97
[2023-11-08] MEDS ORDERED: Macrobid 100MG Capsule ONE (13:51)
== END 2023-11-08 14:10 | disposition home or self-care (01) ==
LOC: ED 11:27
DX: O21.9 Vomiting of pregnancy, unspecified (principal); O23.41 Unspecified infection of urinary tract in pregnancy, first trimester; N39.0 Urinary tract infection, site not specified; R19.7 Diarrhea, unspecified; Z79.899 Other long term (current) drug therapy; Z28.310 Unvaccinated for COVID-19; Z72.0 Tobacco use
CPT/HCPCS: 36000; 36415; 80053; 81001; 84484; 84703; 85025; 96360; 99284; A9270-GY

== ENCOUNTER 2024-03-01 19:13 | Observation (INO) | payer OTHER ==
[2024-03-01 19:55] VITALS: RESP 20
[2024-03-01 19:56] LABS: Appearance Cloudy (Clear); Bacteria Many /HPF (None Seen); Bilirubin Negative (Negative); Blood Negative (Negative); Epithelial Cells Many /HPF (None Seen); Glucose, Urine Negative (Negative); Ketones 80 (Negative); Leukocyte Esterase Small (Negative); Nitrite Negative (Negative); Ph 5.5 (4.6-8.0); Protein,Urine Dip 30 (Negative); Specific Gravity >=1.030 (1.005-1.030); WBC 21-50 /HPF (0-5)
[2024-03-01 20:15] LABS: ADD URINE CULTURE? YES (NO)
[2024-03-01] MEDS ORDERED: Sodium Chloride 0.9% 1000 ML 1,000 ML ONE (21:06)
[2024-03-01] MEDS ORDERED: ROCEPHIN 1 GM / 100 ML NaCl 1 GM/100 ML IVPB IV ONE (21:06)
[2024-03-01] MEDS: Lactated Ringers 1,000 ML IV ONE (21:07)
[2024-03-01] MEDS: ROCEPHIN 1 GM / 100 ML NaCl 1 GM/100 ML IVPB IV ONE (21:10)
[2024-03-01] MEDS: Sodium Chloride 0.9% 250 ML 250 ML IV SCH (21:30)
[2024-03-01 21:40] LABS: Amphetamine,Urine NEGATIVE (NEGATIVE); Barbiturate,Urine NEGATIVE (NEGATIVE); Benzodiazepine,Urine NEGATIVE (NEGATIVE); Cocaine,Urine NEGATIVE (NEGATIVE); Methadone,Urine NEGATIVE (NEGATIVE); Opiate,Urine NEGATIVE (NEGATIVE); PCP,Urine NEGATIVE (NEGATIVE); THC,Urine POSITIVE (NEGATIVE)
[2024-03-01 23:17] VITALS: BP 96/56; PULSE 77; TEMP 97.8; O2SAT 100
[2024-03-02] MEDS ORDERED: KEFLEX 500 MG PO SCH (09:00)
[2024-03-02] MEDS: Lactated Ringers 1,000 ML IV SCH (19:53)
== END 2024-03-01 23:13 | disposition home or self-care (01) ==
LOC: OB 19:13
PROVIDERS: ADMIT Family Medicine; ATTEND Family Medicine
DX: Z34.82 Encounter for supervision of other normal pregnancy, second trimester (principal); Z3A.22 22 weeks gestation of pregnancy; Z63.0 Problems in relationship with spouse or partner; Z59.811 Housing instability, housed, with risk of homelessness
CPT/HCPCS: 80307; 81001; 87086; G0378; G0379; J0696

== ENCOUNTER 2024-03-22 14:41 | Emergency (ER) | payer OTHER ==
[2024-03-22 15:03] VITALS: TEMP 98.2
[2024-03-22 15:18] LABS: Absolute Neutrophil Ct (ANC) 8.53 x10^3/uL (1.56-6.13); BASOPHIL % 0.4 % (0.1-1.2); Basophil (Absolute #) 0.04 x10^3/uL (0.01-0.08); Eosinophil (Absolute #) 0.22 x10^3/uL (0.04-0.36); Hematocrit 36.5 % (34.1-44.9); Hemoglobin 12.1 g/dL (11.2-15.7); IMMATURE GRAN # 0.04 x10^3u/L (0.001-0.031); IMMATURE GRAN % 0.4 % (0.001-0.429); Lymphocyte (Absolute #) 1.78 x10^3/uL (1.18-3.74); Lymphocytes % 15.9 % (19.3-51.7); Mean Corpuscular Hemoglobin 29.2 pg (25.6-32.2); Mean Corpuscular Hgb Concent. 33.2 g/dL (32.2-35.5); Mean Platelet Volume 10.1 fL (9.4-12.3); Monocytes % 5.4 % (4.7-12.5); Neutrophil % 75.9 % (34.0-71.1); Platelet Count 293 x10^3/uL (182-369); Red Blood Count 4.15 x10^6/uL (3.93-5.22); White Blood Count 11.2 x10^3/uL (3.98-10.04)
[2024-03-22 15:24] LABS: Appearance Cloudy (Clear); Bacteria Moderate /HPF (None Seen); Bilirubin Small (Negative); Blood Negative (Negative); Epithelial Cells Many /HPF (None Seen); Glucose, Urine Negative (Negative); Ketones 80 (Negative); Leukocyte Esterase Small (Negative); Nitrite Negative (Negative); Protein,Urine Dip 30 (Negative); RBC 0-2 /HPF (0-5); Specific Gravity >=1.030 (1.005-1.030)
[2024-03-22 15:28] LABS: ADD URINE CULTURE? YES (NO)
[2024-03-22 15:31] LABS: ALBUMIN 4.2 g/dL (3.5-5.0); ANION GAP 14.9 MEQ/L (5-15); BILIRUBIN,TOTAL 0.6 mg/dL (0.2-1.3); Calcium 9.3 mg/dL (8.4-10.2); Creatinine 1 0.5 mg/dL (0.52-1.04); EST GLOMERULAR FILTRATION RATE 132.6 ML/MIN; Potassium 3.9 mmol/L (3.5-5.1); Total Protein 7.5 g/dL (6.3-8.2)
[2024-03-22] MEDS ORDERED: Zofran 4 MG/2 ML VIAL ONE (15:38)
[2024-03-22] MEDS ORDERED: Reglan 10 MG/2 ML ONE (15:38)
[2024-03-22] MEDS ORDERED: Sodium Chloride 0.9% 1000 ML 1,000 ML ONE (15:38)
[2024-03-22] MEDS ORDERED: BENADRYL 50 MG/ML ONE (15:38)
[2024-03-22] MEDS: Reglan 10 MG/2 ML IV ONE (15:40)
[2024-03-22] MEDS: Sodium Chloride 0.9% 1000 ML 1,000 ML IV STA (15:41)
[2024-03-22] MEDS: BENADRYL 50 MG/ML IV ONE (15:43)
[2024-03-22] MEDS ORDERED: TYLENOL 325 MG ONE (15:45)
[2024-03-22] MEDS: TYLENOL 325 MG PO ONE (15:46)
--- NOTE | 2024-03-22 16:06 | ERPHSYRPT ---
- History of Present Illness Time Seen by Provider: 03/22/24 14:49 Source: patient, family Exam Limitations: no limitations Patient Subjective Stated Complaint: C/O N/V and headache since 2pm today. Denies any abdominal pain or cramping. Triage Nursing Assessment: Patient brought back to ER in a W/C. She is alert and oriented. Patient is dry heaving during assessment. JEAN-BAPTISTE WNL. Skin tone normal. NO SOB. Physician History: 28 years old 3 para 1 at 25 weeks gestation with history of migraines presented in the ER with complains of sudden onset nausea vomiting with headache. Patient reports 4/10 intensity headache in the occipital area without any numbness tingling or focal weakness. No visual disturbance. No significant aggravating or relieving factors. Denies any abdominal pain/pelvic cramping, vaginal bleeding or discharge. movements as usual. No UTI symptoms. Patient reports she took her and antidepressant today and does have history of having some nausea with antidepressants. Allergies/Adverse Reactions: No Known Drug Allergies Allergy (Verified 03/22/24 14:53) Home Medications: Levothyroxine Sodium [Levothyroxine] 275 mcg PO DAILY 08/25/22 [History] Sertraline HCl 50 mg [Zoloft 50 mg Tablet] 50 mg PO DAILY 07/07/23 [History] Vit No.179/Iron/Folic [ Tablet] 1 tab PO DAILY 03/22/24 [History] Hx Tetanus, Diphtheria Vaccination/Date Given: Yes Hx Influenza Vaccination/Date Given: No Hx Pneumococcal Vaccination/Date Given: No Immunizations Up to Date: Yes Travel Risk - International Travel Have you traveled outside of the country in past 3 weeks: No - Emerging Infectious Disease Are you exhibiting symptoms associated with any current EIDs: Yes Symptoms: Vomitting Comment: headache only - Review of Systems Constitutional: No Symptoms Ears, Nose, & Throat: No Symptoms Respiratory: No Symptoms Cardiac: No Symptoms Abdominal/Gastrointestinal: Nausea, Vomiting Genitourinary Symptoms: No Symptoms Musculoskeletal: No Symptoms Skin: No Symptoms Neurological: No Symptoms Endocrine: No Symptoms Hematologic/Lymphatic: No Symptoms Immunological/Allergic: No Symptoms - Past Medical History Pertinent Past Medical History: Yes Neurological History: Other ENT History: Other Cardiac History: Other Respiratory History: Bronchitis Endocrine Medical History: Hypothyroidism Musculoskeletal History: No Pertinent History GI Medical History: Gallbladder Disease History: No Pertinent History Psycho-Social History: Depression Female Reproductive Disorders: No Pertinent History Other Medical History: Graves disease , non epileptic seizures, heart murmer thyroid iradiation - Past Surgical History Past Surgical History: Yes Neuro Surgical History: No Pertinent History Cardiac: Cardiac Stent Respiratory: No Pertinent History Gastrointestinal: Cholecystectomy Genitourinary: No Pertinent History Musculoskeletal: No Pertinent History Female Surgical History: No Pertinent History Other Surgical History: states heart murmur surgery Significant Family History: no pertinent family hx - Female History Hx Now: Yes Gestational Age: 25 weeks - Social History Smoking Status: Current every day smoker How long have you smoked: 11 years Exposure to second hand smoke: No Drug Use: marijuana Patient Lives Alone: Yes - Social Determinants of Health Will the patient participate in the screening: Declined to provide - Nursing Vital Signs Nursing Vital Signs: Initial Vital Signs Pulse Rate 71 03/22/24 14:53 Respiratory Rate 16 03/22/24 14:53 Blood Pressure 105/67 03/22/24 14:53 O2 Sat by Pulse Oximetry 94 L 03/22/24 14:53 Pain Scale Pain Intensity 8 - Physical Exam General Appearance: no apparent distress, alert Eye Exam: PERRL/EOMI Ears, Nose, Throat Exam: normal ENT inspection, pharynx normal Neck Exam: normal inspection, supple, full range of motion Respiratory Exam: normal breath sounds, lungs clear Cardiovascular Exam: regular rate/rhythm, normal heart sounds Gastrointestinal/Abdomen Exam: soft, normal bowel sounds, tenderness Extremity Exam: normal inspection Neurologic Exam: alert, oriented x 3, cooperative, u.s. representative II-XII nml as tested, normal mood/affect, nml cerebellar function, nml station & gait, sensation nml, No motor deficits Skin Exam: normal color SpO2 Interpretation: normal SpO2: 96 O2 Delivery: Room Air Ordered Tests: Active Orders 24 hr Category Date Time Status Heart Tones-ED STAT Care 03/22/24 15:14 Active IV Insertion STAT Care 03/22/24 15:13 Active CBC W DIFF Stat Lab 03/22/24 15:10 Completed CMP Stat Lab 03/22/24 15:10 Completed CULTURE,URINE Stat Lab 03/22/24 15:10 Received LIPASE Stat Lab 03/22/24 15:10 Completed UA W/RFX UR CULTURE Stat Lab 03/22/24 15:10 Completed Medication Summary Generic Name Dose Route Start Last Admin Trade Name Freq PRN Reason Stop Dose Admin Ceftriaxone Sodium 2 gm in 100 mls @ 200 mls/hr 03/22/24 17:25 Rocephin 2 Gm/100 Ml Nacl IV 03/22/24 17:54 STAT ONE Discontinued Medications Generic Name Dose Route Start Last Admin Trade Name Stephan PRN Reason Stop Dose Admin Acetaminophen 975 mg 03/22/24 15:13 03/22/24 15:46 Acetaminophen 325 Mg Tablet PO 03/22/24 15:14 975 mg STAT ONE Administration Acetaminophen Confirm 03/22/24 15:45 Acetaminophen 325 Mg Tablet Administered 03/22/24 15:46 Dose 975 mg .ROUTE .STK-MED ONE Diphenhydramine HCl 25 mg 03/22/24 15:13 03/22/24 15:43 Diphenhydramine Hcl 50 Mg/Ml Vial IV 03/22/24 15:14 25 mg STAT ONE Administration Diphenhydramine HCl Confirm 03/22/24 15:38 Diphenhydramine Hcl 50 Mg/Ml Vial Administered 03/22/24 15:39 Dose 50 mg .ROUTE .STK-MED ONE Sodium Chloride 1,000 mls @ 999 mls/hr 03/22/24 15:13 03/22/24 16:46 Sodium Chloride 0.9% 1000 Ml IV 03/22/24 16:13 Infused .Q1H1M STA Infusion Sodium Chloride Confirm 03/22/24 15:38 Sodium Chloride 0.9% 1000 Ml Administered 03/22/24 15:39 Dose 1,000 mls @ ud .ROUTE .STK-MED ONE Metoclopramide HCl 10 mg 03/22/24 15:13 03/22/24 15:40 Metoclopramide Hcl 10 Mg/2 Ml Vial IV 03/22/24 15:14 10 mg STAT ONE Administration Metoclopramide HCl Confirm 03/22/24 15:38 Metoclopramide Hcl 10 Mg/2 Ml Vial Administered 03/22/24 15:39 Dose 10 mg .ROUTE .STK-MED ONE Ondansetron HCl Confirm 03/22/24 15:38 Ondansetron Hcl 4 Mg/2 Ml Vial Administered 03/22/24 15:39 Dose 4 mg .ROUTE .STK-MED ONE Lab/Rad Data: Laboratory Result Diagrams 03/22/24 15:10 03/22/24 15:10 Laboratory Results 03/22/24 03/22/24 03/22/24 Range/Units 15:10 15:10 15:10 WBC 11.2 H (3.98-10.04) x10^3/uL RBC 4.15 (3.93-5.22) x10^6/uL Hgb 12.1 (11.2-15.7) g/dL Hct 36.5 (34.1-44.9) % MCV 88.0 (79.4-94.8) fL MCH 29.2 (25.6-32.2) pg MCHC 33.2 (32.2-35.5) g/dL RDW 15.0 H (11.7-14.4) % Plt Count 293 (182-369) x10^3/uL MPV 10.1 (9.4-12.3) fL Gran % 75.9 H (34.0-71.1) % Immature Gran % (Auto) 0.4 (0.001-0.429) % Nucleat RBC Rel Count 0.0 (0.00-0.2) % Eos # (Auto) 0.22 (0.04-0.36) x10^3/uL Immature Gran # (Auto) 0.04 H (0.001-0.031) x10^3u/L Absolute Lymphs (auto) 1.78 (1.18-3.74) x10^3/uL Absolute Monos (auto) 0.60 (0.24-0.86) x10^3/uL Absolute Nucleated RBC 0.00 (0.00-0.012) x10^3u/L Lymphocytes % 15.9 L (19.3-51.7) % Monocytes % 5.4 (4.7-12.5) % Eosinophils % 2.0 (0.7-5.8) % Basophils % 0.4 (0.1-1.2) % Absolute Granulocytes 8.53 H (1.56-6.13) x10^3/uL Basophils # 0.04 (0.01-0.08) x10^3/uL Sodium 135 (135-145) mmol/L Potassium 3.9 (3.5-5.1) mmol/L Chloride 107 (98-107) mmol/L Carbon Dioxide 17 L (22-30) mmol/L Anion Gap 14.9 (5-15) MEQ/L BUN 10 (7-17) mg/dL Creatinine 0.50 L (0.52-1.04) mg/dL Estimated GFR 132.6 ML/MIN Glucose 81 (74-106) mg/dL Calcium 9.3 (8.4-10.2) mg/dL Total Bilirubin 0.60 (0.2-1.3) mg/dL AST 43 H (14-36) U/L ALT 51 H (0-35) U/L Alkaline Phosphatase 118 (38-126) U/L Serum Total Protein 7.5 (6.3-8.2) g/dL Albumin 4.2 (3.5-5.0) g/dL Lipase 50 (23-300) U/L Urine Color Dark Yellow A (Yellow) Urine Appearance Cloudy A (Clear) Urine pH 6.0 (4.6-8.0) Ur Specific [place] >=1.030 A (1.005-1.030) Urine Protein 30 (Negative) Urine Glucose (UA) Negative (Negative) mg/dL Urine Ketones 80 A (Negative) Urine Blood Negative (Negative) Urine Nitrite Negative (Negative) Urine Bilirubin Small A (Negative) Urine Urobilinogen 1.0 A (0.2) mg/dL Ur Leukocyte Esterase Small A (Negative) U Hyaline Cast (Auto) 3-5 A (0-2) /LPF Urine Microscopic RBC 0-2 (0-5) /HPF Urine Microscopic WBC 11-20 A (0-5) /HPF Ur Epithelial Cells Many A (None Seen) /HPF Urine Bacteria Moderate A (None Seen) /HPF Urine Culture Reflexed YES (NO) - Progress Progress: improved Progress Note: 03/22/24 17:44 28 years old 3 para 1 at 25 weeks is evaluated in the ER for multiple episodes of vomiting with nausea and headache prior to arrival. Patient has no abdominal tenderness. heart tone in 170s. No cramping or vaginal bleeding. Patient is given symptomatic treatment with fluids, Reglan Benadryl and Tylenol, on reevaluation headache is much improved. She has a nonfocal neuroexam. Workup showed white count of 11, fairly unremarkable chemistries ex cept for mildly elevated transaminases with normal bilirubin. Normal lipase. Does have some element of UTI and given a dose of Rocephin. Headache or upset stomach could be secondary to and Zoloft intake as it has happened in the past with Zoloft versus nausea vomiting secondary to migraine and less likely viral etiology. Patient continues to have no abdominal or pelvic pain. Do not think patient needs any other workup, she is advised to take Tylenol/Zofran as needed and outpatient follow-up. Discussed signs symptoms of worsening needing return to ER which he seems understanding. Stable for discharge. Counseled pt/family regarding: lab results, diagnosis, need for follow-up, rad results Medical Desision Making - Diagnostic Testing Diagnostic test were ordered, analyzed, and reviewed by me: Yes - Risk of complications The pt has a mod risk of morbidity or mortality based on: Need for prescription drug management - Departure Departure Disposition: Home Clinical Impression: UTI in , Nausea/vomiting in , Migraine Condition: Stable Critical Care Time: No Referrals: GERMANIA ROTHMAN DO [Primary Care Provider] - Follow up/PCP as directed RUPERTO ROMAN MD [ACTIVE STAFF] - Follow up with PCP 1 day Instructions: Nausea and vomiting in adults, Urinary tract infections in Additional Instructions: Drink plenty of fluids. Take Tylenol/Zofran as needed. Follow-up with your primary care/OB for reevaluation. Return to ER for any worsening. Prescriptions: Cephalexin Mh 500 mg [Keflex 500 mg] 500 mg PO TID #21 cap Ondansetron ODT 4 MG [Zofran Odt 4 mg] 1 ea PO QIDPRN PRN #7 tablet PRN Reason: n/v
[2024-03-22 16:11] VITALS: RESP 17
[2024-03-22] MEDS ORDERED: ROCEPHIN 2 GM/100 ML NACL 2 GM/100 ML IVPB IV ONE (17:46)
[2024-03-22] MEDS: ROCEPHIN 2 GM/100 ML NACL 2 GM/100 ML IVPB IV ONE (17:53)
[2024-03-22 18:30] VITALS: BP 100/61; PULSE 67; O2SAT 97
== END 2024-03-22 18:31 | disposition home or self-care (01) ==
LOC: ED 14:41
DX: O21.2 Late vomiting of pregnancy (principal); O23.42 Unspecified infection of urinary tract in pregnancy, second trimester; N39.0 Urinary tract infection, site not specified; Z3A.25 25 weeks gestation of pregnancy; G43.909 Migraine, unspecified, not intractable, without status migrainosus; Z79.899 Other long term (current) drug therapy; Z72.0 Tobacco use
CPT/HCPCS: 36000; 36415; 80053; 81001; 83690; 85025; 87086; 96374; 96375; 99284; J0696; J1200; J2405; A9270-GY

== ENCOUNTER 2024-05-29 07:31 | Observation (INO) | payer BC, OTHER ==
[2024-05-29] MEDS ORDERED: Lactated Ringers 1,000 ML IV ONE (08:06)
[2024-05-29 08:10] LABS: Appearance Clear (Clear); Bacteria Rare /HPF (None Seen); Bilirubin Negative (Negative); Blood Negative (Negative); Epithelial Cells Few /HPF (None Seen); Glucose, Urine Negative (Negative); Hyaline Casts NONE SEEN /LPF (0-2); Ketones 15 (Negative); Leukocyte Esterase Moderate (Negative); Nitrite Negative (Negative); Protein,Urine Dip Negative (Negative); RBC 0-2 /HPF (0-5)
[2024-05-29 08:14] LABS: ADD URINE CULTURE? YES (NO)
[2024-05-29] MEDS: BRETHINE 1 MG/ML SQ ONE (08:59)
[2024-05-29] MEDS: OMNIPEN 2 GM*** 2 G in Sodium Chloride 100ML MINI-BAG PLUS 100 ML IV SCH (09:00)
[2024-05-29 09:31] LABS: Amphetamine,Urine NEGATIVE (NEGATIVE); Barbiturate,Urine NEGATIVE (NEGATIVE); Cocaine,Urine NEGATIVE (NEGATIVE); Methadone,Urine NEGATIVE (NEGATIVE); Opiate,Urine NEGATIVE (NEGATIVE); PCP,Urine NEGATIVE (NEGATIVE); THC,Urine POSITIVE (NEGATIVE)
[2024-05-29] MEDS: PROCARDIA 10 MG PO ONE (09:34)
[2024-05-29] MEDS: Celestone Soluspan 6MG/ML IM SCH (11:08)
[2024-05-29] MEDS: Lactated Ringers 1,000 ML IV ONE (11:41)
[2024-05-29 11:58] LABS: Benzodiazepine,Urine NEGATIVE (NEGATIVE)
[2024-05-29] MEDS ORDERED: PROCARDIA 10 MG PO SCH (12:00)
[2024-05-29] MEDS: Lactated Ringers 1,000 ML IV SCH (12:09)
[2024-05-29] MEDS: PROCARDIA 10 MG PO SCH (16:07)
[2024-05-30 07:33] VITALS: TEMP 97.9
--- NOTE | 2024-05-30 07:41 | PCM.NOTE ---
Date and Time: 05/30/2437 Subjective Assessment: pt currently at 34 4/7 wks gestation admitted for labor and was given steroid yesterday as well as started on antibiotic therapy currently on procardia 10mg q 6 hrs. states feeling well and denies uterine contx. vss afebrile abd; soft exam; /-2/vtx/intact a/p iup 34 4/7 wks with resolving ptl will continue iv fluids at this time no cervical change noted will give second dose of steroid today anticipate discharge today will fu with provider as scheduled tomorrow will send home on rx of procardia 10mg to take every 8 hrs Objective Data Vital Signs: Vital Signs - 24 hr Temp Pulse Resp BP BP Pulse Ox 05/30/24 07:32 97.9 F 71 18 101/63 98 05/30/24 06:00 98.5 F 67 18 93/51 98 05/30/24 02:00 98.4 F 67 18 107/57 96 05/29/24 22:00 98.4 F 76 18 113/63 97 05/29/24 18:12 72 16 106/62 05/29/24 17:00 98.4 F 90 18 108/58 97 05/29/24 16:02 98.4 F 75 18 102/63 96 05/29/24 14:27 98.4 F 85 18 104/62 95 05/29/24 11:15 97.8 F 95 H 16 102/62 94 L 05/29/24 11:00 97.8 F 87 16 106/64 99 05/29/24 09:00 16 124/62 05/29/24 08:30 74 16 99/62 05/29/24 07:50 97.8 F 80 16 111/66 97 05/29/24 07:45 80 16 111/66 Pain Assessment - Last Documented Pain Intensity 1 Intake and Output: Intake & Output 05/27/24 05/28/24 05/29/24 05/30/24 11:59 11:59 11:59 11:59 Intake Total 480 Balance 480 Weight 78.925 kg Lab Results: Lab Results-Last 24 Hours 05/29/24 05/29/24 Range/Units Unknown Unknown Urine Color Yellow (Yellow) Urine Appearance Clear (Clear) Urine pH 8.0 (4.6-8.0) Ur Specific [place] 1.020 (1.005-1.030) Urine Protein Negative (Negative) Urine Glucose (UA) Negative (Negative) mg/dL Urine Ketones 15 A (Negative) Urine Blood Negative (Negative) Urine Nitrite Negative (Negative) Urine Bilirubin Negative (Negative) Urine Urobilinogen 1.0 A (0.2) mg/dL Ur Leukocyte Esterase Moderate A (Negative) U Hyaline Cast (Auto) NONE SEEN (0-2) /LPF Urine Microscopic RBC 0-2 (0-5) /HPF Urine Microscopic WBC 11-20 A (0-5) /HPF Ur Epithelial Cells Few (None Seen) /HPF Urine Bacteria Rare A (None Seen) /HPF Urine Culture Reflexed YES (NO) Urine Opiates Level NEGATIVE (NEGATIVE) Ur Methadone NEGATIVE (NEGATIVE) Urine Barbiturates NEGATIVE (NEGATIVE) Ur Phencyclidine (PCP) NEGATIVE (NEGATIVE) Urine Amphetamine NEGATIVE (NEGATIVE) U Benzodiazepine Level NEGATIVE (NEGATIVE) Urine Cocaine NEGATIVE (NEGATIVE) Urine Marijuana (THC) POSITIVE A (NEGATIVE) Assessment/Plan (1) labor in third trimester Current Visit: Yes Status: Acute Code(s): O60.03 - LABOR WITHOUT DELIVERY, THIRD TRIMESTER
[2024-05-30] MEDS: SYNTHROID 75 MCG PO SCH (08:12)
[2024-05-30] MEDS: SYNTHROID 100 MCG PO SCH (08:12)
[2024-05-30 10:07] VITALS: BP 103/59; PULSE 73; RESP 16; O2SAT 100
== END 2024-05-30 13:35 | disposition home or self-care (01) ==
LOC: OB 07:31
PROVIDERS: ADMIT Obstetrics & Gynecology; ATTEND Obstetrics & Gynecology
DX: Z34.83 Encounter for supervision of other normal pregnancy, third trimester (principal); Z3A.34 34 weeks gestation of pregnancy; Z59.41 Food insecurity; F17.200 Nicotine dependence, unspecified, uncomplicated
CPT/HCPCS: 80307; 81001; 87086; 87653; G0378; G0379; J0290; J0702; A9270-GY

== ENCOUNTER 2024-06-03 03:26 | Observation (INO) | payer BC, OTHER ==
[2024-06-03 04:02] VITALS: O2SAT 96
[2024-06-03 04:10] LABS: Appearance Clear (Clear); Bacteria None Seen /HPF (None Seen); Bilirubin Negative (Negative); Blood Negative (Negative); Epithelial Cells Rare /HPF (None Seen); Glucose, Urine Negative (Negative); Hyaline Casts NONE SEEN /LPF (0-2); Ketones Negative (Negative); Leukocyte Esterase Trace (Negative); Nitrite Negative (Negative); Ph 6.5 (4.6-8.0); Protein,Urine Dip Negative (Negative); RBC 0-2 /HPF (0-5); Urobilinogen 0.2 mg/dL (0.2)
[2024-06-03 04:11] LABS: ADD URINE CULTURE? NO (NO)
[2024-06-03 04:20] LABS: Amphetamine,Urine NEGATIVE (NEGATIVE); Barbiturate,Urine NEGATIVE (NEGATIVE); Benzodiazepine,Urine NEGATIVE (NEGATIVE); Cocaine,Urine NEGATIVE (NEGATIVE); Methadone,Urine NEGATIVE (NEGATIVE); Opiate,Urine NEGATIVE (NEGATIVE); PCP,Urine NEGATIVE (NEGATIVE); THC,Urine POSITIVE (NEGATIVE)
[2024-06-03] MEDS: Lactated Ringers 1,000 ML IV ONE (04:35)
[2024-06-03] MEDS: BRETHINE 1 MG/ML SQ ONE ×2 (04:50→08:46)
[2024-06-03] MEDS: Lactated Ringers 1,000 ML IV SCH (08:48)
[2024-06-03] MEDS ORDERED: TYLENOL EXTRA STRENGTH 500 MG PO PRN (09:26)
[2024-06-03 09:44] VITALS: BP 107/68; RESP 14; TEMP 98.7
[2024-06-03] MEDS: PROCARDIA 10 MG PO SCH (10:59)
[2024-06-03 14:01] VITALS: PULSE 94
== END 2024-06-03 13:30 | disposition home or self-care (01) ==
LOC: OB 03:26
PROVIDERS: ADMIT Family Medicine; ATTEND Family Medicine
DX: Z34.83 Encounter for supervision of other normal pregnancy, third trimester (principal); Z3A.35 35 weeks gestation of pregnancy
CPT/HCPCS: 80307; 81001; 96372; G0378; G0379; A9270-GY

== ENCOUNTER 2024-06-14 13:02 | Observation (INO) | payer BC, OTHER ==
[2024-06-14 14:09] VITALS: RESP 18; O2SAT 97
[2024-06-14] MEDS: BRETHINE 1 MG/ML SQ ONE (14:27)
[2024-06-14] MEDS: Lactated Ringers 1,000 ML IV SCH ×2 (14:28→15:37)
[2024-06-14 14:29] LABS: AMNISURE TEST RESULTS NEGATIVE (NEGATIVE)
[2024-06-14 14:41] LABS: Amphetamine,Urine NEGATIVE (NEGATIVE); Barbiturate,Urine NEGATIVE (NEGATIVE); Benzodiazepine,Urine NEGATIVE (NEGATIVE); Cocaine,Urine NEGATIVE (NEGATIVE); Methadone,Urine NEGATIVE (NEGATIVE); Opiate,Urine NEGATIVE (NEGATIVE); PCP,Urine NEGATIVE (NEGATIVE); THC,Urine POSITIVE (NEGATIVE)
[2024-06-14 16:27] LABS: Appearance Clear (Clear); Bacteria Few /HPF (None Seen); Bilirubin Negative (Negative); Blood Negative (Negative); Epithelial Cells Few /HPF (None Seen); Glucose, Urine Negative (Negative); Hyaline Casts NONE SEEN /LPF (0-2); Ketones Negative (Negative); Leukocyte Esterase Moderate (Negative); Nitrite Negative (Negative); Ph 8.5 (4.6-8.0); Protein,Urine Dip Trace (Negative); RBC 0-2 /HPF (0-5); WBC 21-50 /HPF (0-5)
[2024-06-14 16:32] LABS: ADD URINE CULTURE? YES (NO)
[2024-06-14] MEDS: ROCEPHIN 1 GM / 100 ML NaCl 1 GM/100 ML IVPB IV SCH (16:59)
[2024-06-15] MEDS: Lactated Ringers 1,000 ML IV SCH (02:12)
[2024-06-15 02:16] VITALS: BP 104/67; PULSE 72; TEMP 97.8
== END 2024-06-15 08:15 | disposition home or self-care (01) ==
LOC: OB 13:32
PROVIDERS: ADMIT Obstetrics & Gynecology; ATTEND Obstetrics & Gynecology
DX: Z34.83 Encounter for supervision of other normal pregnancy, third trimester (principal); Z3A.36 36 weeks gestation of pregnancy
CPT/HCPCS: 80307; 81001; 84112; 87086; G0378; G0379; J0696

== ENCOUNTER 2024-06-18 16:54 | Inpatient (IN) | payer BC, OTHER ==
[2024-06-18] MEDS ORDERED: XYLOCAINE 1% HCL 20 ML MDV IJ PRN (17:08)
[2024-06-18] MEDS ORDERED: Zofran 4 MG/2 ML VIAL IV PRN (17:08)
[2024-06-18] MEDS ORDERED: Lactated Ringers 1,000 ML IV ONE ×3 (17:13→17:24)
[2024-06-18] MEDS ORDERED: Ephedrine Sulfate 50 MG/ML IV PRN (17:13)
[2024-06-18] MEDS ORDERED: FENTANYL 2 MCG-BUPIV 0.125%-NS 250 ML Epidur 250 ML EPIDURAL SCH (17:15)
[2024-06-18 17:24] LABS: BASOPHIL % 0.3 % (0.1-1.2); Basophil (Absolute #) 0.04 x10^3/uL (0.01-0.08); Eosinophil % 1.7 % (0.7-5.8); Eosinophil (Absolute #) 0.21 x10^3/uL (0.04-0.36); Hematocrit 34.9 % (34.1-44.9); Hemoglobin 11.3 g/dL (11.2-15.7); IMMATURE GRAN # 0.06 x10^3u/L (0.001-0.031); IMMATURE GRAN % 0.5 % (0.001-0.429); Lymphocyte (Absolute #) 2.77 x10^3/uL (1.18-3.74); Lymphocytes % 21.9 % (19.3-51.7); Mean Cell Volume 88.1 fL (79.4-94.8); Mean Corpuscular Hemoglobin 28.5 pg (25.6-32.2); Mean Corpuscular Hgb Concent. 32.4 g/dL (32.2-35.5); Mean Platelet Volume 10.1 fL (9.4-12.3); Monocyte (Absolute #) 0.75 x10^3/uL (0.24-0.86); Monocytes % 5.9 % (4.7-12.5); Neutrophil % 69.7 % (34.0-71.1); Platelet Count 311 x10^3/uL (182-369); Red Blood Count 3.96 x10^6/uL (3.93-5.22); Red Cell Distribution Width 15.5 % (11.7-14.4); White Blood Count 12.6 x10^3/uL (3.98-10.04)
[2024-06-18 18:42] LABS: ABO TYPING A; RH TYPING NEGATIVE
[2024-06-18 18:43] LABS: Antibody Screen POSITIVE (NEGATIVE)
[2024-06-18] MEDS ORDERED: LANSINOH 40 GM ONE (19:55)
[2024-06-18] MEDS ORDERED: TUCKS TP ONE (19:56)
[2024-06-18] MEDS ORDERED: Dermoplast Spray ONE (19:56)
[2024-06-18] MEDS ORDERED: CORTISONE 1% CREAM TP PRN (20:46)
[2024-06-18] MEDS ORDERED: Dulcolax 10 MG SUPP PR PRN (20:46)
[2024-06-18] MEDS ORDERED: Anucort-HC SUPPOSITORY PR PRN (20:46)
[2024-06-18] MEDS ORDERED: TYLENOL EXTRA STRENGTH 500 MG PO PRN (20:46)
[2024-06-18] MEDS: TUCKS TP PRN (20:50)
[2024-06-18] MEDS: Dermoplast Spray TP PRN (20:50)
[2024-06-18] MEDS: LANSINOH 40 GM TOP PRN (20:51)
[2024-06-18] MEDS: PITOCIN 30 UNITS/ LR 500 ML 30 UNITS/500 ML PLAST..BAG IV SCH (21:13)
[2024-06-18] MEDS: Lactated Ringers 1,000 ML IV SCH (21:14)
[2024-06-18] MEDS: Docusate Sodium 100 MG PO SCH (22:30)
[2024-06-19] MEDS: MOTRIN 400 MG PO PRN (01:47)
[2024-06-19 04:38] LABS: Absolute Neutrophil Ct (ANC) 8.65 x10^3/uL (1.56-6.13); BASOPHIL % 0.3 % (0.1-1.2); Basophil (Absolute #) 0.04 x10^3/uL (0.01-0.08); Eosinophil % 1.8 % (0.7-5.8); Eosinophil (Absolute #) 0.22 x10^3/uL (0.04-0.36); Hematocrit 33.3 % (34.1-44.9); IMMATURE GRAN # 0.05 x10^3u/L (0.001-0.031); IMMATURE GRAN % 0.4 % (0.001-0.429); Lymphocyte (Absolute #) 2.25 x10^3/uL (1.18-3.74); Lymphocytes % 18.9 % (19.3-51.7); Mean Cell Volume 88.1 fL (79.4-94.8); Mean Corpuscular Hemoglobin 29.1 pg (25.6-32.2); Monocyte (Absolute #) 0.71 x10^3/uL (0.24-0.86); Neutrophil % 72.6 % (34.0-71.1); Platelet Count 277 x10^3/uL (182-369); Red Blood Count 3.78 x10^6/uL (3.93-5.22); Red Cell Distribution Width 15.8 % (11.7-14.4); White Blood Count 11.9 x10^3/uL (3.98-10.04)
[2024-06-19] MEDS: SYNTHROID PO SCH (12:33)
[2024-06-19] MEDS: FERREX 150 PO SCH (12:35)
[2024-06-19] MEDS: THERAGRAN MULTIVITAMIN PO SCH (12:35)
[2024-06-19 22:00] VITALS: O2SAT 98
[2024-06-20 08:25] LABS: RPR Non Reactive (Non Reactive)
--- NOTE | 2024-06-20 09:08 | PCM.DS ---
Discharge Summary Date of Admission: 06/18/24 16:54 Admitting Physician: RUPERTO ROMAN Consults: Consults on Case 06/19/24 09:00 Navigation ONCE Primary Care Provider: GERMANIA ROTHMAN DO Allergies Allergies No Known Drug Allergies Allergy (Verified 03/22/24 14:53) Hospital Summary - Hospital Course Hospital Course: patient arrived in spontaneous labor, precipitous vaginal delivery. doing well , . mild lochia, no problems or concerns - Vitals & Intake/Output Vital Signs: Vital Signs Temperature 97.9 F 06/20/24 03:00 Pulse Rate 55 L 06/20/24 03:00 Respiratory Rate 16 06/20/24 03:00 Blood Pressure 106/72 06/20/24 03:00 O2 Sat by Pulse Oximetry 98 06/19/24 21:00 Intake & Output: Intake & Output 06/17/24 06/18/24 06/19/24 06/20/24 11:59 11:59 11:59 11:59 Intake Total 600 Output Total 318 Balance -318 600 Weight 80.739 kg - Lab Result Diagrams: 06/19/24 04:33 Lab Results-Last 24 Hrs: Lab Results-Last 24 Hours 06/18/24 Range/Units 17:25 RPR Non Reactive (Non Reactive) Discharge Exam General Appearance: no apparent distress Neurologic Exam: alert, oriented x 3 Respiratory Exam: normal breath sounds, lungs clear, No respiratory distress Cardiovascular Exam: regular rate/rhythm, normal heart sounds Gastrointestinal/Abdomen Exam: soft, No tenderness, No mass Extremity Exam: normal inspection, normal range of motion Skin Exam: normal color, warm, dry Final Diagnosis/Problem List - Final Discharge Diagnosis/Problem (1) Vaginal delivery Current Visit: Yes Status: Acute Code(s): O80 - ENCOUNTER FOR FULL-TERM UNCOMPLICATED DELIVERY - Discharge Disposition: Home, Self-Care Condition: Stable Prescriptions: Continue Levothyroxine Sodium 275 mcg PO DAILY Vit No.179/Iron/Folic [ Tablet] 1 tab PO DAILY Follow up with: GERMANIA ROTHMAN DO [Primary Care Provider] -
[2024-06-20] MEDS: Adacel Vial IM ONE (12:10)
[2024-06-20 15:22] VITALS: BP 124/71; PULSE 75; RESP 14; TEMP 97.8
== END 2024-06-20 16:10 | disposition home or self-care (01) | DRG 807 ==
LOC: OBSVTOIN 16:54 → UNDOADMOB 16:54 → OB 16:54
PROVIDERS: ADMIT Family Medicine; ATTEND Family Medicine
PROC: 10E0XZZ Delivery of Products of Conception, External Approach (ICD-10-PCS; principal; 2024-06-18)
DX: O69.81X0 Labor and delivery complicated by cord around neck, without compression, not applicable or unspecified (principal); Z37.0 Single live birth; Z3A.37 37 weeks gestation of pregnancy
CPT/HCPCS: 36415; 85025; 86592; 86850; 86870; 86900; 86901; 90715; 96372; J2590; A9270-GY